=== PATIENT | female | born 1950 | race Caucasian/White ===

== ENCOUNTER 2025-03-22 14:01 | Observation (INO) | payer MEDICARE, SELFPAY ==
--- OUTSIDE RECORDS SUMMARY | 2023-12-14 04:00 | XMS_ITS ---
Author Organization [facility] Address [address] [place] [address] Care Team Providers Care Inspector Clip On Sunglasses Name Role Phone Todd Rothman Unavailable [phone] Migration, Provider Unavailable Unavailable REASON FOR VISIT [facility] [place] Social History Sex Assigned At : Social History Observation Description Sex Assigned At Female Encounters Encounter Location Date Provider Diagnosis [facility] [address] [place] [address] 12/14/2023 Provider Migration Plan Of Treatment Medication Medication Name Sig Start Date Stop Date Notes Meloxicam 7.5 MG take 1 tablet by ora l route 2 times every day Oral 10/14/2023 11/12/2023 Progress Notes * Ashok YUB: (75 yo F)Acc No.[id number]:12/14/2023 Patient: Gini KEATING :1950 A ge:73 Y S ex:Female Address[facility] [place], [address] * Refills Stop Meloxicam Tablet, 7.5 MG, Oral, 60, take 1 tablet by oral route 2 times every day Subjective: * Chief Complaints: * E MR-Ray * Medical History: * Surgical History: * Hospitalization/Major Diagno stic Procedure: * Medications: Objective: * Vitals: * Physical Examination: Assessment: Plan: * Treatment: * Procedure Codes: * * Date:
--- OUTSIDE RECORDS SUMMARY | 2023-12-15 04:00 | XMS_ITS ---
Author Organization [facility] Address [address] [place] [address] Care Team Providers Care Front Desk Lead Name Role Phone Todd Rothman Unavailable [phone] Migration, Provider Unavailable Unavailable Allergies No Known Allergies REASON FOR VISIT [facility] [place] Medications Medication SIG (Take, Route, Frequency, Duration) Notes Start Date End Date Status Estradiol 0.05 MG/24HR apply 1 patch by transdermal route every week cyclically, 3 weeks on and 1 week off Transdermal Active Atorvastatin Calcium 10 MG take 1 tablet by oral route every day Oral Active Donepezil HCl 10 MG take 1 tablet by ora l route every day in the evening Oral Active Escitalopram Oxalate 20 MG take 1 tablet by oral route every day Oral Active ALPRAZolam Intensol 1 MG/ML take 0.25 milliliter by oral route 3 times every day mixed with water, juice, soda, soda-like beverage, applesauce or pudding Oral Active Triamterene-HCTZ 37.5-25 MG take 1 capsule by oral route every day Oral Active Meloxicam 7.5 MG take 1 tablet by ora l route 2 times every day Oral 11/22/2023 12/21/2023 Active Social History Sex Assigned At : Social History Observation Description Sex Assigned At Female Encounters Encounter Location Date Provider Diagnosis [facility] [address] [place] [address] 12/15/2023 Provider Migration Plan Of Treatment No Information Progress Notes * Gini YUDOB: (75 yo F)Acc No.[id number]:12/15/2023 Patient: Gini KEATING :1950 A ge:73 Y S ex:Female Address:[address] [place] [address] [place], [address] Subjective: * Chief Complaints: * E MR-Ray * Medical History: * Surgical History: Sx_Procedure : historectomy 1983 Sx_Procedure : breast reduction 1989 * Hospitalization/Major Diagno stic Procedure: * Medications: T akingAtorvastatin Calcium 10 MG Tablet take 1 tablet by oral route every day Oral Meloxicam 7.5 MG Tablet take 1 tablet by oral route 2 times every day Oral , stop date 12/21/2023Escitalopram Oxalate 20 MG Tablet take 1 tablet by oral route every day Oral ALPRAZolam Intensol 1 MG/ML Concentrate take 0.25 milliliter by oral route 3 times every day mixed with water, juice, soda, soda-like beverage, applesauce or pudding Oral Triamterene-HCTZ 37.5-25 MG Capsule take 1 capsule by oral route every day Oral Estradiol 0.05 MG/24HR Patch Weekly apply 1 patch by transdermal route every week cyclically, 3 weeks on and 1 week off Transdermal Donepezil HCl 10 MG Tablet take 1 tablet by oral route every day in the evening Oral Taking Atorvastatin Calcium 10 MG Tablet take 1 tablet by oral route every day Oral Taking Meloxicam 7.5 MG Tablet take 1 tablet by oral route 2 times every day Oral , stop date 12/21/2023Taking Escitalopram Oxalate 20 MG Tablet take 1 tablet by oral route every day Oral Taking ALPRAZolam Intensol 1 MG/ML Concentrate take 0.25 milliliter by oral route 3 times every day mixed with water, juice, soda, soda-like beverage, applesauce or pudding Oral Taking Triamterene-HCTZ 37.5-25 MG Capsule take 1 capsule by oral route every day Oral Taking Estradiol 0.05 MG/24HR Patch Weekly apply 1 patch by transdermal route every week cyclically, 3 weeks on and 1 week off Transdermal Taking Donepezil HCl 10 MG Tablet take 1 tablet by oral route every day in the evening Oral * Allergies: N .K.D.A. Objective: * Vitals: * Physical Examination: Assessment: Plan: * Treatment: * Procedure Codes: * * Date:
--- OUTSIDE RECORDS SUMMARY | 2023-12-18 05:30 | XMS_ITS ---
Author Organization [facility] Address [address] [place] [address] Care Team Providers Care Motor Runner Name Role Phone Todd Rothman Unavailable [phone] REASON FOR VISIT FU/DANA Social History Sex Assigned At : Social History Observation Description Sex Assigned At Female Encounters Encounter Location Date Provider Diagnosis [facility] [address] [place] [address] 12/18/2023 Todd Rothman Plan Of Treatment No Information Progress Notes * Gini YUDOB: (75 yo F)Acc No.[id number]:12/18/2023 Progress Notes Patient: Gini KEATING Provider: Cory Rothman MD :1950 A ge:73 Y S ex:Female Date:12/18/2023 [facility] Subjective: * Chief Complaints: * 1 . FU/DANA. * Medical History: Objective: * Vitals: Assessment: Plan: * Treatment: * Billing Information: * Visit Code: * Procedure Codes: * Electronic signature of Todd Rothman MD on 2025 at 04:14 PM CDT Sign off status: Pending * Provider: Croy Rothman MD Date: 0 12/18/2023 Generated for Printi ng/Faxing/eTransmitting on: 1 04:14 PM CDT
--- OUTSIDE RECORDS SUMMARY | 2024-01-31 04:30 | XMS_ITS ---
Author Organization [facility] Address [address] [place] [address] Care Team Providers Care Elevator Pilot Name Role Phone Todd Rothman Unavailable [phone] REASON FOR VISIT FU/DANA Social History Sex Assigned At : Social History Observation Description Sex Assigned At Female Encounters Encounter Location Date Provider Diagnosis [facility] [address] [place] [address] 01/31/2024 Todd Rothman Plan Of Treatment No Information Progress Notes * Gini YUDOB: (75 yo F)Acc No.[id number]:01/31/2024 Progress Notes Patient: Gini KEATING Provider: Cory Rothman MD :1950 A ge:73 Y S ex:Female Date:01/31/2024 [facility] Subjective: * Chief Complaints: * 1 . FU/DANA. * Medical History: Objective: * Vitals: Assessment: Plan: * Treatment: * Billing Information: * Visit Code: * Procedure Codes: * Electronic signature of Todd Rothman MD on 2025 at 04:15 PM CDT Sign off status: Pending * Provider: Cory Rothman MD Date: 0 01/31/2024 Generated for Printi ng/Faxing/eTransmitting on: 1 04:15 PM CDT
--- OUTSIDE RECORDS SUMMARY | 2024-02-14 06:00 | XMS_ITS ---
Author Organization [facility] Address [address] [place] [address] Care Team Providers Care Slime Plant Operator Name Role Phone Stephan Todd Unavailable [phone] Jamia Santos Unavailable [phone] REASON FOR VISIT 2 month f/u Social History Sex Assigned At : Social History Observation Description Sex Assigned At Female Encounters Encounter Location Date Provider Diagnosis [facility] [place] [address] [place] [address] 02/14/2024 Jamia Santos Plan Of Treatment No Information Progress Notes * Gini YUDOB: (75 yo F)Acc No.[id number]:02/14/2024 Progress Notes Patient: Gini KEATING Provider: Anton Santos NP :1950 A ge:73 Y S ex:Female Date:02/14/2024 Address:[address] [place], [place] Subjective: * Chief Complaints: * 1 . 2 month f/u. * Medical History: Objective: * Vitals: Assessment: Plan: * Treatment: * Billing Information: * Visit Code: * Procedure Codes: * Electronic signature of Ana Lilia Santos NP on 2025 at 04:15 PM CDT Sign off status: Pending * Provider: Anton Santos NP Date: 0 02/14/2024 Generated for Printi ng/Faxing/eTransmitting on: 1 04:15 PM CDT
--- NOTE | ~2025-03-22 | CT_ITS ---
CT pelvis wo con INDICATION:Left pubic ramus fracture and sacral pain COMPARISON: None. TECHNIQUE: Noncontrast axial CT images of the pelvis were obtained followed by multiplanar reconstruction in the coronal and sagittal planes. FINDINGS: There is a acute nondisplaced fracture of the left superior pubic rami. Symphysis pubis and sacroiliac joints intact. Soft tissues are grossly unremarkable. IMPRESSION: Acute nondisplaced fracture of the left superior pubic rami.i All CT scans at this facility are performed using low dose modulation techniques as appropriate to perform exam including the following: automated exposure control; use of iterative reconstruction technique; adjustment of the mA and/or kV according to patient size (this includes techniques or standardized protocols for targeted exams where dose is matched to indication/reason for exam). Reviewed, dictated and finalized at location S. IMPRESSION: Acute nondisplaced fracture of the left superior pubic rami.i All CT scans at this facility are performed using low dose modulation techniqu es as appropriate to perform exam including the following: automated exposure c ontrol; use of iterative reconstruction technique; adjustment of the mA and/or kV according to patient size (this includes techniques or standardized protocol s for targeted exams where dose is matched to indication/reason for exam).
--- NOTE | ~2025-03-22 | CT_ITS ---
EXAMINATION: CT cervical spine wo con DATE: 03/22/2025 14:29 INDICATION: Head injury. TECHNIQUE: Computed tomography (CT) of the cervical spine was performed without intravenous contrast. Automated exposure control and iterative reconstruction technique were employed. The dose-length product was 143.99 mGy-cm. COMPARISON: None FINDINGS: There is 4 degrees levocurvature of cervical spine. Vertebral body heights are normal. There is mildly decreased disc height at C3-C4, C4-C5, C5- C6, and C6-C7. There is multilevel [id number] facet joint osteoarthritis. There is mild neural foraminal stenosis at multiple levels on either side. There is mild central canal stenosis at C4-C5, C5-C6, and C6-C7. IMPRESSION: 1. No fracture. 2. Mild cervical spondylosis. Reviewed, dictated and finalized at location E.
--- NOTE | ~2025-03-22 | CT_ITS ---
EXAMINATION: CT brain wo con DATE: 03/22/2025 14:28 INDICATION: Head injury. TECHNIQUE: Computed tomography (CT) of the head was performed without intravenous contrast. The mA was adjusted according to patient size. Iterative reconstruction technique was employed. The dose-length product was 605.33 mGy-cm. COMPARISON: None FINDINGS: There is no intracranial hemorrhage, acute infarction, or abnormal intracranial mass lesion. There are scattered areas of low attenuation in the cerebral white matter, which is within normal limits for the patient's age. The ventricles are normal in size. There is mild mucosal thickening in the ethmoid sinuses. The mastoid air cells are normal. The orbits are normal. IMPRESSION: 1. Normal aging brain. Reviewed, dictated and finalized at location E. IMPRESSION: 1. Normal aging brain.
--- NOTE | ~2025-03-22 | XR_ITS ---
EXAMINATION: XR hip LT 2V w AP pelvis DATE: 03/22/2025 14:41 INDICATION: Left hip pain post fall TECHNIQUE: Anteroposterior view of the pelvis and anteroposterior and cross- table lateral views of the left hip were obtained. COMPARISON: None. FINDINGS: Minimally displaced fracture at the left superior pubic ramus with mild buckling along the cephalad cortex. Fracture appears to extend into the left pubic body. No other fractures identified. Specifically the visualized proximal left femur in the left acetabulum including the anterior and posterior columns remain intact. Sacral arches are intact. Mild osteoarthritis at the bilateral hip and sacroiliac joints. Mild lumbar levocurvature with moderate to severe lower lumbar facet osteoarthritis with right-sided predominance. IMPRESSION: 1. Minimally displaced fracture of the left superior pubic ramus and body. Reviewed, dictated and finalized at location A.
--- NOTE | ~2025-03-22 | XR_ITS ---
XR lumbar spine 2-3V Indication: trauma, back pain Comparison: None Findings: Grade 1 retrolisthesis of L2 on L3, no fracture is identified. There is a mild levoconvex scoliosis. Moderate loss of disc height throughout. Soft tissues unremarkable Impression: No acute abnormality. Reviewed, dictated and finalized at location P. Impression: No acute abnormality.
[2025-03-22 14:14] VITALS: BP 140/77; PULSE 70; RESP 20; TEMP 36.4; O2SAT 100
[2025-03-22 14:59] VITALS: BP 121/71; PULSE 67; RESP 20; O2SAT 99
--- NOTE | 2025-03-22 15:54 | ED_ITS ---
HPI - Fall General Chief Complaint: Fall Stated Complaint: GLF-head injury Time Seen by Provider: 03/22/25 14:11 History of Present Illness HPI Narrative: Patient is a 75-year-old female who presents ER after having a fall at her memory care. Unwitnessed. They think her head may have struck a door handle. She has a small laceration to her head. She is not on blood thinners. She does have pain in the left hip/pelvic region with range of motion. No shortening or external rotation. Cannot provide any history. Related Data Allergies Allergy/AdvReac Type Severity Reaction Status Date / Time No Known Allergies Allergy Mild Verified 03/22/25 21:18 Review of Systems 2 Review of Systems: ROS unobtainable: Yes unobtainable due to mental status PMFSH Past Medical History Medical History Postmenopausal Age-related osteoporosis without current pathological fracture Anxiety Dementia, unspecified, without behavioral disturbance Mixed hyperlipidemia Family History Family History Mother Family history of Alzheimer's disease Father Family history of coronary artery disease Sibling Family history of coronary artery disease Social History Social History Smoking status: Never smoker Second hand tobacco smoke exposure: No Alcohol intake: never Exam 2 Narrative: GENERAL: Well-appearing, well-nourished, and in no acute distress. HEAD: Normocephalic, atraumatic. 1 cm laceration left temporal occipital area. ENT: Mucous membranes moist. CHEST: Clear to auscultation. No respiratory distress. HEART: Regular rate and rhythm. Normal peripheral pulses. ABDOMEN: Soft, nontender, nondistended. EXTREMITIES: Decreased range of motion due to pain in left hip. Normal right lower extremity and bilateral upper extremities. SKIN: Warm, dry, no rash. NEURO: Alert and oriented x3. PSYCH: Normal mood and affect. Course Course Emergency Course: Orthopedic surgery consulted. Admit to hospitalist service. Will require placement in a skilled facility. Vital Signs Vital signs: Vital Signs Temperature 97.6 F 03/22/25 14:14 Pulse Rate 70 03/22/25 14:14 Respiratory Rate 20 03/22/25 14:14 Blood Pressure 140/77 03/22/25 14:14 Pulse Oximetry 100 03/22/25 14:14 Oxygen Delivery Room Air 03/22/25 14:14 Temperature 97.6 F 03/22/25 21:21 Pulse Rate 59 L 03/22/25 21:21 Respiratory Rate 18 03/22/25 21:21 Blood Pressure 110/52 L 03/22/25 21:21 Pulse Oximetry 95 03/22/25 21:21 Oxygen Delivery Room Air 03/22/25 14:14 Procedures Laceration Laceration 1: Date: 03/22/25 Time: 18:00 Site: scalp Size (cm): 1 Description: linear Depth: simple, single layer Pre-repair: wound explored and irrigated ====== Skin Level ====== Skin layer closed with: leann Number of sutures: 1 ====== Subcutaneous Layer ====== ====== Muscle Layer ====== ====== Tendon Layer ====== MDM - Fall Lab Data 03/22/25 16:46 03/22/25 16:46 Labs: Lab Results 03/22/25 Range/Units 16:46 WBC 8.4 (4.5-10.0) K/mm3 RBC 3.96 L (4.2-5.4) M/mm3 Hgb 11.6 L (12.0-15.0) g/dL Hct 36.3 L (37.0-47.0) % MCV 91.7 (80-100) fl MCH 29.3 (26-34) pg MCHC 32.0 (32-36) g/dl RDW 14.1 (11.5-14.5) % Plt Count 267 (150-375) k/mm3 MPV 10.8 H (7.4-10.4) fl Immature Gran % (Auto) 0.4 (0-0.5) % Neut % (Auto) 73.6 H (45.5-73.1) % Lymph % (Auto) 14.1 L (18.3-44.2) % [place] % (Auto) 9.5 H (2.6-8.5) % Eos % (Auto) 1.7 (0-4.4) % Baso % (Auto) 0.7 (0.2-1.2) % Lymph # (Auto) 1.18 (0.9-3.2) K/mm3 [place] # (Auto) 0.8 H (0.1-0.6) K/mm3 Eos # (Auto) 0.1 (0-0.3) K/mm3 Baso # (Auto) 0.1 (0.0-0.1) K/mm3 Abs Immat Gran (auto) 0.03 (0.00-0.031) K/mm3 Absolute Neuts (auto) 6.2 (1.3-6.7) K/mm3 Absolute Nucleated RBC 0.000 (0.0-0.012) K/mm3 Nucleated RBC % 0.0 (0.0-0.2) % Sodium 138 (137-145) mmol/L Potassium 4.1 (3.4-5.0) mmol/L Chloride 99 (98-107) mmol/L Carbon Dioxide 33 H (22-30) mmol/L Anion Gap 6 (4-12) mmol/L BUN 29 H (7-17) mg/dL Creatinine 0.92 (0.7-1.0) mg/dL Estim Creat Clear Calc 39 ml/min Estimated GFR 60 (59 - ) Glucose 100 (65-110) mg/dL Calcium 9.1 (8.4-10.2) mg/dL Total Bilirubin 0.3 (0.2-1.3) mg/dL AST 31 (14-36) U/L ALT 22 (6-35) U/L Alkaline Phosphatase 80 (38-126) U/L Total Protein 6.7 (6.3-8.2) g/dL Albumin 3.8 (3.5-5.1) g/dL Imaging Data Radiologist's impression: ITS Impressions Head CT 03/22/25 14:29 IMPRESSION: 1. Normal aging brain. Cervical Spine CT 03/22/25 14:30 IMPRESSION: 1. No fracture. 2. Mild cervical spondylosis. Hip/Pelvis X-Ray 03/22/25 15:06 IMPRESSION: 1. Minimally displaced fracture of the left superior pubic ramus and body. Discharge Plan Discharge Clinical Impression: Pelvic fracture, Laceration of scalp Patient Disposition: Still a Patient Condition: Stable
--- OUTSIDE RECORDS SUMMARY | 2025-03-22 16:15 | XMS_ITS | Patient Health Record ---
Author Organization [facility] Address [address] [facility] [place] [address] Care Team Providers Care Food Service Sales Representatives Name Role Phone Todd Rothman Unavailable [phone] Allergies No Known Allergies Reason For Referral No Information Medications Medication SIG (Take, Route, Frequency, Duration) Notes Start Date End Date Status Estradiol 0.05 MG/24HR apply 1 patch by transdermal route every week cyclically, 3 weeks on and 1 week off Transdermal Active Atorvastatin Calcium 10 MG take 1 tablet by oral route every day Oral Active Triamterene-HCTZ 37.5-25 MG take 1 capsu le by oral route every day Oral Active Donepezil HCl 10 MG take 1 tablet by ora l route every day in the evening Oral Active Escitalopram Oxalate 20 MG take 1 tablet by oral route every day Oral Active ALPRAZolam Intensol 1 MG/ML take 0.25 mi lliliter by oral route 3 times every day mixed with water, juice, soda, soda-like beverage, applesauce or pudding Oral Active Social History Sex Assigned At : Social History Observation Description Sex Assigned At Female Plan Of Treatment No Information Insurance Providers Payer Name Payer Address Payer Phone Subscriber Number Group Number Insured Name Patient Relationship to Insured Coverage Start Date Coverage End Date [employer] Advantage Steven [address] [address] [place], [place] [id number] Gini Rodríguez Self - patient is the insured 4 Medical (General) History Surgical History Surgery Date(Month/Year) Sx_Procedure : historectomy 1983 Sx_Procedure : breast reduction 1989
--- OUTSIDE RECORDS SUMMARY | 2025-03-22 16:15 | XMS_ITS | Patient Health Record ---
Author Organization [facility] Address [address] [place] [id number] Care Team Providers Care Help Desk Support Specialist Name Role Phone JAMIE DICKINSON Primary Care Provider DR. SIMBA KAMINSKI Unavailable [phone] Xochitl Solo Unavailable [phone] [employer] Unavailable [phone] Cassandra Conley Unavailable [phone] Melyssa Canas Unavailable [phone] Allergies No Known Allergies Results Component Value Reference Range Notes Vitamin D, 25-Hydroxy Reviewed date:10/06/2024 11:01:58 AM Interpretation: Performing Lab: Notes/Report: Lipid Panel Reviewed date:10/06/2024 11:01:31 AM Interpretation: Performing Lab: Notes/Report: Basic Metabolic Panel (8) Reviewed date:10/06/2024 11:01:12 AM Interpretation: Performing Lab: Notes/Report: CBC Reviewed date:10/06/2024 11:00:45 AM Interpretation: Performing Lab: Notes/Report: X ray : Femur, right Reviewed date:11/11/2024 12:58:20 PM Interpretation: Performing Lab: Notes/Report: Urine Culture and Sensitivit y Reviewed date:11/16/2024 05:07:23 PM Interpretation: Performing Lab: Notes/Report: Reason For Referral No Information Medications Medication SIG (Take, Route, Frequency, Duration) Notes Start Date End Date Status ALPRAZolam 0.25 MG Tablet 1 tablet at be dtime Orally daily; Duration: 30 days 03/15/2025 Active Estradiol 0.5 MG Tablet 1 tablet Orally Once a day Active Escitalopram Oxalate 20 MG Tablet 1 tablet Orally Once a day Active Triamterene-HCTZ 37.5-25 MG Tablet 1 tablet in the morning Orally Once a day Active Memantine HCl 10 MG Tablet 1 tablet Oral ly Once a day Active Atorvastatin Calcium 10 MG Tablet 1 tablet Orally Once a day Active Pregabalin 75 MG Capsule 1 capsule Orall y twice a day 03/02/2025 Active Donepezil HCl 10 MG Tablet 1 tablet at b edtime Orally Once a day Active Rexulti 0.5 MG Tablet 1 tablet Orally On ce a day Active Social History Section Notes: former smoker former smoker former smoker former smoker former smoker former smoker Problems Problem Type SNOMED Code ICD Code Onset Dates Problem Status W/U Status Risk Notes Problem Moderate recurrent major depression (23315047) Major depressive disorder, recurrent, moderate (F33.1) Active confirmed Problem Essential hypertension (79405324) Essential (primary) hypertension (I10) Active confirmed Problem Hyperlipidemia (67024801) Hyperlipidemia (E78.5) Active confirmed Problem Dementia (54389313) Chronic dementia (F03.90) Active confirmed Vital Signs Heart Rate 64 /min 02/25/2025 Temperature 97.6 degrees Fahrenheit 02/25/2025 Respiratory Rate 18 /min 02/25/2025 Oximetry 95 % 02/25/2025 Blood pressure diastolic 64 mm Hg 02/25/2025 Blood pressure systolic 124 mm Hg 02/25/2025 Encounters Encounter Location Date Provider Diagnosis [address] [address] 08/12/2024 Xochitl Germania Chronic dementia F03.90 ; Essential (primary) hypertension I10 ; Major depressive disorder, recurrent, moderate F33.[address] [facility] [address] [place] [address] 12/04/2024 Melyssa Canas Chronic dementia F03.90 ; Essential (primary) hypertension I10 ; Major depressive disorder, recurrent, moderate F33.1 and Hyperlipidemia E78.[address] [address] 01/01/2025 Melyssa Canas Chronic dementia F03.90 ; Essential (primary) hypertension I10 ; Major depressive disorder, recurrent, moderate F33.1 ; Hyperlipidemia E78.5 and UTI (urinary tract infection), uncomplicated N39.0 [facility] [address] [place] [address], [place] [address] 02/25/2025 JAMIEMARGARET DICKINSON Chronic dementia F03.90 ; Essential (primary) hypertension I10 ; Major depressive disorder, recurrent, moderate F33.1 and Hyperlipidemia E78.5 [facility] [address] [place] [address], [place] [address] 08/11/2024 Xochitl Pendegraft [facility] [address] [place] [address], [place] [address] 08/11/2024 SIMBA KAMINSKI [facility] [address] [place] [address], [place] [address] 09/14/2024 Xochitl Pendegraft [facility] [address] [place] [address] 09/28/2024 Xochitl Pendegraft [facility] [address] [place] [address], [place] [address] 09/30/2024 Xochitl Pendegraft [facility] [address] [place] [address], [place] [address] 10/07/2024 Xochitl Pendegraft [facility] [address] [place] [address], [place] [address] 10/26/2024 JAMIE DICKINSON [facility] [address] [place] [address], [place] [address] 11/03/2024 Cassandra Conley [facility] [address] [place] [address] 11/05/2024 JAMIEMARGARET LAURENIA [facility] [address] [place] [address], [place] [address] 11/16/2024 JAMIE TEENA [facility] [address] [place] [address], [place] [address] 11/27/2024 JAMIE TEENA [facility] [address] [place] [address], [place] [address] 12/03/2024 Melyssa Canas [facility] [address] [place] [address], [place] [address] 12/03/2024 Melyssa Canas [facility] [address] [place] [address], [place] [address] 12/14/2024 [facility] [address] [id number] 12/28/2024 JAMIEMARGARET DICKINSON [facility] [address] [address] 01/05/2025 Cassandra Conley [facility] [address] [phone] 01/29/2025 Sri Holman [facility] [address] [phone] 02/09/2025 JAMIE TEENA [facility] [address] [address] 02/09/2025 JAMIE TEENA [facility] [address] [address] 02/24/2025 JAMIE [facility] [address] [phone] 03/02/2025 JAMIEMARGARET [place] [address] [address] 03/15/2025 JAMIE DICKINSON Assessments Encounter Date Diagnosis (ICD Code) Assessment Notes Treatment Notes Treatment Clinical Notes Section Notes 08/12/2024 Essential (primary) hypertension (ICD-10 - I10) chronic/stable continue triametrene/hctz 08/12/2024 Chronic dementia (ICD-10 - F03.90) chronic/progress scotty CPM nemanda aricept rexulti 12/04/2024 Chronic dementia (ICD-10 - F03.90) chronic/progress scotty CPM nemanda aricept rexulti 01/01/2025 Chronic dementia (ICD-10 - F03.90) chronic/progress scotty CPM nemanda aricept rexulti 02/25/2025 Essential (primary) hypertension (ICD-10 - I10) Blood pressure is stable and trending at goal. No complaints of adverse signs or symptoms. Stable on current medication regimen. Continue current treatment plan and monitoring. 02/25/2025 Chronic dementia (ICD-10 - F03.90) Alert and oriented x1, but able to make needs known. No behaviors or outburst per staff. Staff has been giving donepezil as an AM administration. Please change donepezil to QHS administration. 08/12/2024 Major depressive disorder, recurrent, moderate (ICD-10 - F33.1) chronic/stable Continue lexapro 02/25/2025 Major depressive disorder, recurrent, moderate (ICD-10 - F33.1) No complaints or concerns. Patient's stable on current medication regimen. Continue current treatment plan and monitoring. 12/04/2024 Essential (primary) hypertension (ICD-10 - I10) chronic/stable continue triametrene/hctz bp reviewed and stable 01/01/2025 Major depressive disorder, recurrent, moderate (ICD-10 - F33.1) chronic/stable Continue lexapro 01/01/2025 Essential (primary) hypertension (ICD-10 - I10) chronic/stable continue triametrene/hctz bp reviewed and stable 01/01/2025 Hyperlipidemia (ICD-10 - E78.5) chronic/stable Continue atorvastatin 12/04/2024 Major depressive disorder, recurrent, moderate (ICD-10 - F33.1) chronic/stable Continue lexapro 08/12/2024 Hyperlipidemia (ICD-10 - E78.5) chronic/stable Continue atorvastatin 02/25/2025 Hyperlipidemia (ICD-10 - E78.5) Last lipid panel 09/30/2024 - WNL. No complaints of adverse signs or symptoms. Well managed on current medication regimen. Continue current treatment plan and monitoring. 12/04/2024 Hyperlipidemia (ICD-10 - E78.5) chronic/stable Continue atorvastatin 01/01/2025 UTI (urinary tract infection), uncomplicated (ICD-10 - N39.0) ua was already ordered and collected results reviewed macrobid order written and given to Simba COVARRUBIAS 08/12/2024 Other f/u in 3 months or sooner if needed obtain BMP CBC FLP Vit D refer to facility EHR for most current medication list 12/04/2024 Other f/u in 3 months or sooner if needed refer to facility EHR for most current medication list 01/01/2025 Other f/u in 3 months or sooner if needed refer to facility EHR for most current medication list 02/25/2025 Other Continue isabell t treatment plan and monitoring. Staff to continue to monitor and report any changes. Patient education provided and questions/concer ns addressed. Follow-up in three months unless necessary sooner. Plan Of Treatment No Information Insurance Providers Payer Name Payer Address Payer Phone Subscriber Number Group Number Insured Name Patient Relationship to Insured Coverage Start Date Coverage End Date [place] [address] [address] [place] [address] [id number] Gini Rodríguez Self - patient is the insured Medical (General) History Medical History History ICD Code anxiety hypertension Surgical History Surgery Date(Month/Year) NO PREVIOUS SURGERIES
--- OUTSIDE RECORDS SUMMARY | 2025-03-22 16:15 | XMS_ITS | Patient Health Record ---
Author Organization RAMBO BASS MD PA1 Address [address] [place] [address] Care Team Providers Care Bus Driver Supervisor Name Role Phone RAMBO BASS Primary Care Provider [phone] Reason For Referral No Information Plan Of Treatment No Information Insurance Providers Payer Name Payer Address Payer Phone Subscriber Number Group Number Insured Name Patient Relationship to Insured Coverage Start Date Coverage End Date MEDICARE [address] [place] [phone] [id number] [id number] Self - patient is the insured [facility] [address] [place] [address] [id number] Self - patient is the insured
--- OUTSIDE RECORDS SUMMARY | 2025-03-22 16:15 | XMS_ITS | CCD ---
Author Name Interface, [id number] lity Address [place] [address] [facility] Address [place] [address] Reason for Visit SCRN Social History Date Name Value 09/06/2021 Sex Female
--- OUTSIDE RECORDS SUMMARY | 2025-03-22 16:15 | XMS_ITS | Clinical Summary ---
Author Organization [facility] Address [address] [place] [address] Phone Care Team Providers Care Cupola Charger Name Role Phone Iveth Michelle MD Primary Care Provider [phone] Social History Tobacco Use Types Packs/Day Years Used Date Smoking Tobacco: Never Assessed Comments Unknown Sex and Gender Information Value Date Recorded Sex Assigned at Not on file Legal Sex Female 8:56 AM CDT Gender Identity Not on file Sexual Orientation Not on file Plan of Treatment Health Maintenance Due Date Last Done Comments CT Colonography 1951 Cologuard 1950 Colonoscopy 1950 Colorectal Cancer Screening 1950 Mammogram 1950 Osteoporosis Screening 1951 MMR Vaccines (1 of 1 - Stand vivienne series) 1952 Varicella Vaccines (1 of 2 - 13+ 2-dose series) 1964 DTaP,Tdap,and Td Vaccines (1 - Tdap) 1970 FOBT/FIT 1996 Sigmoidoscopy 1996 Pneumococcal 50+ Yr (1 of 1 - PCV) 2001 Zoster Vaccines (1 of 2) 2001 Influenza Vaccine (#1) 2025 COVID-19 Vaccine ( - 2023-2 5 season) 2025 RSV Vaccine (1 - 1-dose 75+ series) 2026 HIB Vaccines Aged Out No longer eligi ble based on patient's age to complete this topic HPV Vaccines Aged Out No longer eligi ble based on patient's age to complete this topic Hepatitis A Vaccines Aged Out No long er eligible based on patient's age to complete this topic Hepatitis B Vaccines Aged Out No long er eligible based on patient's age to complete this topic IPV Vaccines Aged Out No longer eligi ble based on patient's age to complete this topic Meningococcal B Vaccine Aged Out No l onger eligible based on patient's age to complete this topic Meningococcal Vaccine Aged Out No bonnie jennifer eligible based on patient's age to complete this topic RSV Antibodies Aged Out No longer alan gible based on patient's age to complete this topic Insurance [employer]AGE Care Teams Cupola Charger Relationship Specialty Start Date End Date Iveth Michelle MD PCP - General Family Medicine 10/05/22
[2025-03-22 16:53] LABS: Hematocrit 36.3 % (37.0-47.0); Hemoglobin 11.6 g/dL (12.0-15.0); Immature Granulocyte Percent A 0.4 % (0-0.5); Lymphocytes Absolute Auto 1.18 K/mm3 (0.9-3.2); Mean Corpuscular HGB Conc 32.0 g/dl (32-36); Mean Corpuscular Hemoglobin 29.3 pg (26-34); Mean Corpuscular Volume 91.7 fl (80-100); Nucleated Red Blood Cells Absolute Auto 0.000 K/mm3 (0.0-0.012); Nucleated Red Blood Cells Perc 0.0 % (0.0-0.2); Platelet Count Result 267 k/mm3 (150-375); Red Blood Count 3.96 M/mm3 (4.2-5.4); White Blood Count 8.4 K/mm3 (4.5-10.0)
--- NOTE | 2025-03-22 17:03 | PM.IMHP ---
H&P: HPI History of Present Illness Date/Time: 03/22/25 17:03 Chief Complaint: Fall Narrative: 75 y/o F with PMH of anxiety, dementia, hyperlipidemia, and osteoporosis presents here with fall. The patient [place] [facility] [place] [place] after an unwitnessed fall that occurred today, 03/22. HPI obtained through chart review and the patient's son's report. Patient has a history of dementia and arrived A&O x2. A/Ox1 upon admission assessment and unable to contribute to history. He reports that the patient's sister stated that it appeared she got hung up on a doorknob causing a mechanical fall. Patient had a positive head strike as evidenced by a small less than 1 cm laceration to the left posterior region of her head. He patient unable to report if she lost consciousness. She denies pain to her neck, right side of her head, shins, knees or abdomen on evaluation. Did report some pain to her right thigh but there is no evidence of trauma on exam. Initial VS at presentation: 97.6? F, HR 70, RR 20, 140/77, and 100% on RA. ED workup showed: No leukocytosis, hemoglobin 11.6, no significant electrolyte abnormalities, creatinine 0.92 and GFR >60, glucose 100. Head CT showed normal aging brain. C-spine CT showed no fracture and mild cervical spondylosis. Hip/pelvic XR showed a minimally displaced fracture of the left superior pubic ramus and body. Review of Systems Review of Systems: All systems reviewed & are unremarkable except as noted in HPI and below (Limited, disoriented baseline) [facility]LY [facility], [facility] Past Medical History Medical History Postmenopausal Age-related osteoporosis without current pathological fracture Anxiety Dementia, unspecified, without behavioral disturbance Mixed hyperlipidemia Family History Family History Mother Family history of Alzheimer's disease Father Family history of coronary artery disease Sibling Family history of coronary artery disease Social History Social History Smoking status: Never smoker Second hand tobacco smoke exposure: No Alcohol intake: never Meds Home Medications and Allergies Home Medications ?Medication ?Instructions ?Recorded ?Confirmed ?Type pregabalin 50 mg capsule (Lyrica) 50 mg PO BID #180 caps 01/06/20 06/24/20 Rx estradiol 1 mg tablet 0.5 mg (1/2 x 1 mg) PO DAILY #30 04/11/20 06/24/20 Rx tabs donepezil 10 mg tablet (Aricept) 10 mg PO ONCE #90 tabs 05/10/20 06/24/20 Rx triamterene 37.5 1 cap PO DAILY #90 caps 05/25/20 06/24/20 Rx mg-hydrochlorothiazide 25 mg capsule (Dyazide) alendronate 70 mg tablet (Fosamax) 70 mg PO WEEKLY #4 tabs 06/18/20 06/24/20 Rx citalopram 20 mg tablet See Rx Instructions .Route 07/06/20 Rx .COMPLEX #90 tabs alprazolam 0.25 mg tablet 0.25 mg PO DAILY PRN anxiety #30 09/16/20 Rx tabs Allergies Allergy/AdvReac Type Severity Reaction Status Date / Time No Known Allergies Allergy Mild Verified 03/22/25 21:18 Vital Signs Vital Signs - 24 hr 03/22/25 14:14 03/22/25 14:59 Temperature 97.6 F Pulse Rate 70 67 Respiratory Rate 20 20 Blood Pressure 140/77 121/71 Pulse Oximetry 100 99 Oxygen Delivery Room Air Exam Const: General: comfortable and no acute distress Other: , female, elderly HENMT: Face/Nose/Sinus: Normal nares present Mouth: Yes moist mucous membranes Other: Small less than 1 cm laceration to left posterior temporal region, no active bleeding, rounded wound opening not suitable for stapling Eyes: General: appearance normal, both eyes and all related structures Sclera: sclerae normal Pupils: Equal, round and reactive pupils present EOM: EOMs intact bilaterally Resp: Effort & Inspection: normal respiratory effort Auscultation: clear to auscultation bilaterally Cardio: Rate: regular rate Rhythm: regular rhythm Other: S1-S2 present without murmur, rub, ectopy GI: Other: Abdomen soft, nondistended, nontender. Normoactive bowel sounds in all quadrants. Skin: General skin exam: normal color and no rashes or lesions noted Other: Small laceration to left posterior temporal region, no active bleeding. Small skin tear to right posterior hand, dressing CDI. Neuro: Speech: normal speech Motor exam (neuro): 5/5 motor strength present throughout Sensory Exam: normal sensation Other: A&O x1 Extrem: Other: 1+ trace pitting edema to bilateral ankles, symmetric. Minimal pain to right thigh with no overlying trauma noted. Psych: Mental Status: mental status grossly normal Affect: normal affect Other: No agitation or anxiety noted. Poor insight and judgment, pleasant. H&P: Results Labs Labs: Short CBC 03/22/25 Range/Units 16:46 WBC 8.4 (4.5-10.0) K/mm3 Hgb 11.6 L (12.0-15.0) g/dL Hct 36.3 L (37.0-47.0) % Plt Count 267 (150-375) k/mm3 Assessment and Plan Assessment and plan (1) Pubic ramus fracture: Qualifiers: Encounter type: initial encounter Fracture type: closed Laterality: left Qualified Code(s): S32.592A - Other specified fracture of left pubis, initial encounter for closed fracture Code(s): S32.599A - Other specified fracture of unspecified pubis, initial encounter for closed fracture Status: Acute Assessment and Plan: Patient had an unwitnessed fall at the memory care facility she resides at. She was noted to have a small laceration to the left posterior aspect of her head and skin tear to her right hand upon arrival. Hip/pelvic XR obtained on 03/22 showed a minimally displaced fracture of the left superior pubic ramus and body. She has been admitted for pain control, PT/OT evaluation, and placement for rehab services given recovery from fracture will be complicated by dementia. - analgesics p.r.n.: Tylenol, Elizabeth, Morphine p.r.n. - PT/OT evaluation treatment for rehab placement - care coordination consulted for rehab - fall precautions - orthopedics consulted - check UA (2) Dementia, unspecified, without behavioral disturbance: Code(s): F03.90 - Unspecified dementia, unspecified severity, without behavioral disturbance, psychotic disturbance, mood disturbance, and anxiety Status: Acute Assessment and Plan: History of dementia and resides at a memory care unit. Arrived A&O x2 and was A&O x1 upon admission assessment. - continue home medications once verified, unable to receive list from facility (3) Anxiety: Code(s): F41.9 - Anxiety disorder, unspecified Status: Acute Assessment and Plan: Stable, no outward signs of anxiety or agitation. - continue home medications once verified, unable to receive list from facility (4) Mixed hyperlipidemia: Code(s): E78.2 - Mixed hyperlipidemia Status: Acute Assessment and Plan: - continue home medications once verified, unable to receive list from facility Plan Diet: Heart healthy GI Prophylaxis: N/a DVT Prophylaxis: SCDs IV fluids: None Lines/Tubes: Peripheral IV Code Status: Full code Quality VTE Prophylaxis VTE prophylaxis: mechanical ordered Hospitalist MIPS Advance Care Plan I have confirmed that the patient's Advanced Care Plan is present, code status is documented, or surrogate decision maker is listed in patient medical record.: Yes Medication Reconciliation I have utilized all available resources to obtain, update and review the patients current medications (includes all prescriptions, OTC, herbals, cannabis, and nutritional supplements).: Yes
[2025-03-22 17:10] LABS: Alanine Aminotransferase 22 U/L (6-35); Albumin Level 3.8 g/dL (3.5-5.1); Alkaline Phosphatase 80 U/L (38-126); Anion Gap 6 mmol/L (4-12); Aspartate Amino Transferase 31 U/L (14-36); Bilirubin,Total 0.3 mg/dL (0.2-1.3); Blood Urea Nitrogen 29 mg/dL (7-17); Calcium 9.1 mg/dL (8.4-10.2); Carbon Dioxide 33 mmol/L (22-30); Chloride 99 mmol/L (98-107); Estimated CRCL calculation 39 ml/min; Estimated Glomerular Filt Rate 60; Glucose 100 mg/dL (65-110); Potassium 4.1 mmol/L (3.4-5.0); Sodium 138 mmol/L (137-145); Total Protein 6.7 g/dL (6.3-8.2)
[2025-03-22 17:20] VITALS: BP 132/68
[2025-03-22 18:28] VITALS: BP 114/66; PULSE 77; RESP 20; O2SAT 99
[2025-03-22] MEDS: HYDROcodone/acetaminophen (*CRX) 5-325 MG TABLET 1 TAB PO (19:28)
[2025-03-22 19:55] VITALS: BP 118/62; PULSE 61; RESP 18; O2SAT 95
[2025-03-22 21:15] VITALS: BMI 23.3
[2025-03-22 21:21] VITALS: BP 110/52; PULSE 59; RESP 18; TEMP 36.4; O2SAT 95
[2025-03-23] MEDS: HYDROcodone/acetaminophen (*CRX) 5-325 MG TABLET 1 TAB PO ×2 (01:00→21:11)
[2025-03-23 01:23] LABS: Add Urine Microscopic? NO; Appearance Urine Clear (Clear); Glucose Urine UA Negative (Negative); Leukocyte Esterase Ur Negative LEU/UL (Negative); Nitrate Urine Negative (Negative); Specific Grav Ur 1.018 (1.001-1.035)
--- NOTE | 2025-03-23 03:15 | PC.NURSE ---
Addendum entered by Mercedes Hopkins RN 03/23/25 05:04: 0500: called tel: and got the memory care number [phone]. The person who answered the phone stated that the nurse who knows the meds will be back after 7am and we should call back. Will relay this to the day shift RN Addendum entered by Mercedes Hopkins RN 03/23/25 03:55: 0354:tried the tel: no success. Original Note: 2100: Pt admitted from [facility] at 7.30pm. Pt with hx of dementia and baseline orientation only to person. Pt's daughter at bedside but states she does not know pt's med list and we should call the facility. The facility did not fax pt's med list. Charge nurse called the facility 4 times with no success. 0300: tried the number tel: with no success. Daughter was able to confirm that pt is not on any anticoagulant medication has no known allergy hx. Will relay to the day shift RN.
[2025-03-23 04:28] VITALS: BP 114/61; PULSE 70; RESP 14; TEMP 36.7; O2SAT 97
--- NOTE | 2025-03-23 09:57 | PCPTNOTE ---
Ortho consult pending prior to PT evaluation. Will follow.
[2025-03-23 13:26] VITALS: BMI 23.3
--- NOTE | 2025-03-23 13:37 | PC.NURSE ---
Spoke with Chelsea clinical administrative coordinator at [facility] this am- approx. 0830 am at [phone]. Requested patient medication list. Spoke with Clarice - testing director at [phone]. Requested patients home medication list. She advised she will send.
[2025-03-23 14:00] VITALS: BP 123/58; PULSE 80; RESP 16; TEMP 37.5; O2SAT 95
--- NOTE | 2025-03-23 14:41 | PM.IMPN ---
Progress Note: A&P Assessment and Plan (1) Pubic ramus fracture: Qualifiers: Encounter type: initial encounter Fracture type: closed Laterality: left Qualified Code(s): S32.592A - Other specified fracture of left pubis, initial encounter for closed fracture Code(s): S32.599A - Other specified fracture of unspecified pubis, initial encounter for closed fracture Status: Acute Assessment and Plan: Patient had an unwitnessed fall at the memory care facility she resides at. She was noted to have a small laceration to the left posterior aspect of her head and skin tear to her right hand upon arrival. Hip/pelvic XR obtained on 03/22 showed a minimally displaced fracture of the left superior pubic ramus and body. She has been admitted for pain control, PT/OT evaluation, and placement for rehab services given recovery from fracture will be complicated by dementia. - analgesics p.r.n.: Tylenol, Huguenot, Morphine p.r.n. - PT/OT evaluation treatment for rehab placement - care coordination consulted for rehab - fall precautions - orthopedics consulted - check [facility] ortho is following care coordination following for rehab placement (2) Dementia, unspecified, without behavioral disturbance: Code(s): F03.90 - Unspecified dementia, unspecified severity, without behavioral disturbance, psychotic disturbance, mood disturbance, and anxiety Status: Acute Assessment and Plan: History of dementia and resides at a memory care unit. Arrived A&O x2 and was A&O x1 upon admission assessment. - continue home medications once verified (3) Anxiety: Code(s): F41.9 - Anxiety disorder, unspecified Status: Acute Assessment and Plan: Stable, no outward signs of anxiety or agitation. - continue home medications once verified (4) Mixed hyperlipidemia: Code(s): E78.2 - Mixed hyperlipidemia Status: Acute Assessment and Plan: - continue home medications once verified Plan Diet: Heart healthy GI Prophylaxis: N/a DVT Prophylaxis: SCDs IV fluids: None Lines/Tubes: Peripheral IV Code Status: Full code Time Spent With Patient Time with patient: 25 - 35 minutes Subjective Date/time seen: 03/23/25 14:41 Interval history: 75 y/o F with PMH of anxiety, dementia, hyperlipidemia, and osteoporosis presents here with fall. The patient presents here from [facility] for further evaluation after an unwitnessed fall that occurred today, 03/22. HPI obtained through chart review and the patient's son's report. Patient has a history of dementia and arrived A&O x2. A/Ox1 upon admission assessment and unable to contribute to history. He reports that the patient's sister stated that it appeared she got hung up on a doorknob causing a mechanical fall. Patient had a positive head strike as evidenced by a small less than 1 cm laceration to the left posterior region of her head. He patient unable to report if she lost consciousness. She denies pain to her neck, right side of her head, shins, knees or abdomen on evaluation. Did report some pain to her right thigh but there is no evidence of trauma on exam. Initial VS at presentation: 97.6? F, HR 70, RR 20, 140/77, and 100% on RA. ED workup showed: No leukocytosis, hemoglobin 11.6, no significant electrolyte abnormalities, creatinine 0.92 and GFR >60, glucose 100. Head CT showed normal aging brain. C-spine CT showed no fracture and mild cervical spondylosis. Hip/pelvic XR showed a minimally displaced fracture of the left superior pubic ramus and body. 03/23 pt is seen and examined. Ortho is consulted. pain is controlled. Review of Systems Review of Systems: All systems reviewed & are unremarkable except as noted in HPI and below (Limited, disoriented baseline) Exam Const: General: comfortable and no acute distress Other: , female, elderly HENMT: Face/Nose/Sinus: Normal nares present Mouth: Yes moist mucous membranes Other: Small less than 1 cm laceration to left posterior temporal region, no active bleeding, rounded wound opening not suitable for stapling Eyes: General: appearance normal, both eyes and all related structures Sclera: sclerae normal Pupils: Equal, round and reactive pupils present EOM: EOMs intact bilaterally Resp: Effort & Inspection: normal respiratory effort Auscultation: clear to auscultation bilaterally Cardio: Rate: regular rate Rhythm: regular rhythm Other: S1-S2 present without murmur, rub, ectopy GI: Other: Abdomen soft, nondistended, nontender. Normoactive bowel sounds in all quadrants. Skin: General skin exam: normal color and no rashes or lesions noted Other: Small laceration to left posterior temporal region, no active bleeding. Small skin tear to right posterior hand, dressing CDI. Neuro: Cranial nerves: Yes Equal, round and reactive pupils present Speech: normal speech Motor exam (neuro): 5/5 motor strength present throughout Sensory Exam: normal sensation Other: A&O x1 Extrem: Other: 1+ trace pitting edema to bilateral ankles, symmetric. Minimal pain to right thigh with no overlying trauma noted. Psych: Mental Status: mental status grossly normal Affect: normal affect Other: No agitation or anxiety noted. Poor insight and judgment, pleasant. Objective Data Vital Signs Vital Signs: Vital Signs - 24 hr 03/22/25 14:59 03/22/25 17:20 03/22/25 18:28 Temperature Pulse Rate 67 77 Respiratory Rate 20 20 Blood Pressure 121/71 132/68 114/66 Pulse Oximetry 99 99 03/22/25 19:55 03/22/25 21:21 03/23/25 04:28 Temperature 97.6 F 98.0 F Pulse Rate 61 59 L 70 Respiratory Rate 18 18 14 Blood Pressure 118/62 110/52 L 114/61 Pulse Oximetry 95 95 97 03/23/25 14:00 Temperature 99.5 F Pulse Rate 80 Respiratory Rate 16 Blood Pressure 123/58 L Pulse Oximetry 95 Intake/Output Intake/Output: Intake & Output 03/20/25 03/21/25 03/22/25 03/23/25 23:59 23:59 23:59 23:59 Intake Total 400 Output Total 500 Balance -100 Meds/Results Medications: Active Medications Generic Name Dose Route Start Last Admin Trade Name Freq PRN Reason Stop Dose Admin Acetaminophen 650 mg 03/22/25 16:58 Acetaminophen 325 Mg Tablet PO Q4H PRN Mild Pain (1-3) or Fever Hydrocodone Bitart/Acetaminophen 1 tab 03/22/25 16:58 03/23/25 01:00 Hydrocodone/Acetaminophen (*Crx) 5-325 Mg Tablet PO 1 tab Q4H PRN Administration Pain Rated 4-6 Morphine Sulfate 2 mg 03/22/25 17:10 Morphine Sulfate (*Crx) 4 Mg/Ml Inj IV PUSH Q4H PRN Pain Rated 7-10 Naloxone HCl 0.1 mg 03/22/25 17:10 Naloxone Hcl 0.4 Mg/Ml Vial IV PUSH Q5MIN PRN Sedation Ondansetron HCl 4 mg 03/22/25 16:58 Ondansetron Inj 4 Mg/2 Ml Vial IV PUSH Q4H PRN Nausea Senna/Docusate Sodium 1 tab 03/22/25 17:14 Senna/Docusate Sodium Tablet PO HS PRN Constipation Radiology Results: ITS Impressions Head CT 03/22/25 14:29 IMPRESSION: 1. Normal aging brain. Cervical Spine CT 03/22/25 14:30 IMPRESSION: 1. No fracture. 2. Mild cervical spondylosis. Hip/Pelvis X-Ray 03/22/25 15:06 IMPRESSION: 1. Minimally displaced fracture of the left superior pubic ramus and body. Labs Labs: Laboratory Results - last 24 hr 03/22/25 03/22/25 03/23/25 16:46 21:31 00:56 WBC 8.4 RBC 3.96 L Hgb 11.6 L Hct 36.3 L MCV 91.7 MCH 29.3 MCHC 32.0 RDW 14.1 Plt Count 267 MPV 10.8 H Immature Gran % (Auto) 0.4 Neut % (Auto) 73.6 H Lymph % (Auto) 14.1 L Preston % (Auto) 9.5 H Eos % (Auto) 1.7 Baso % (Auto) 0.7 Lymph # (Auto) 1.18 Preston # (Auto) 0.8 H Eos # (Auto) 0.1 Baso # (Auto) 0.1 Abs Immat Gran (auto) 0.03 Absolute Neuts (auto) 6.2 Absolute Nucleated RBC 0.000 Nucleated RBC % 0.0 Sodium 138 Potassium 4.1 Chloride 99 Carbon Dioxide 33 H Anion Gap 6 BUN 29 H Creatinine 0.92 Estim Creat Clear Calc 39 Estimated GFR 60 Glucose 100 POC Capillary Glucose 103 Calcium 9.1 Total Bilirubin 0.3 AST 31 ALT 22 Alkaline Phosphatase 80 Total Protein 6.7 Albumin 3.8 Urine Color Yellow Urine Appearance Clear Urine pH 7.0 Ur Specific [place] 1.018 Urine Protein Negative Urine Glucose (UA) Negative Urine Ketones Negative Ur Blood (Man) Negative Urine Nitrate Negative Urine Bilirubin Negative Urine Urobilinogen 1.0 Leukocyte Esterase Rfl Negative Quality VTE Prophylaxis VTE prophylaxis: mechanical ordered
--- NOTE | 2025-03-23 16:54 | PM.CNOR ---
Assessment and Plan Assessment and plan (1) Pubic ramus fracture: Qualifiers: Encounter type: initial encounter Fracture type: closed Laterality: left Qualified Code(s): S32.592A - Other specified fracture of left pubis, initial encounter for closed fracture Code(s): S32.599A - Other specified fracture of unspecified pubis, initial encounter for closed fracture Status: Acute Assessment and Plan: Patient is a very pleasant 75-year-old female who was brought to the emergency room from [facility] yesterday after an unwitnessed fall and inability to bear weight. She had x-rays of the left hip which demonstrate a buckle type fracture of the superior pubic ramus at junction of body in superior pubic ramus there is also an irregularity of the pubic body on the left consistent with fracture. No other fracture noted. She also hit her head had a laceration over the left posterior aspect of her head. She had a CT scan brain which showed no acute abnormality. She also had cervical spine CT showing no fracture. She has a history of significant dementia. Physical examination On exam today she is very pleasant and communicates well but the things that she is saying and the answers to my questions no makes sense. She was unable to process my question of whether she was having pain in the left medial groin. With passive range of motion of her left hip though she did complain of pain at the left medial groin. I asked her if she had had any pain in her tailbone area and she responded that she had. Answers to further questioning about this however did not make sense. The as she may have a significant sacral fracture company pubic ramus fracture we will order a CT scan without contrast the pelvis for full evaluation as well as lumbar spine films. The patient has prior bone density test from June of 2020 showing lumbar spine T-score -2.5 both hips had T-score-0.9 so she did have osteoporosis in the lower back at that time. DVT prophylaxis is indicated. Since she has had recent head trauma I am a little bit worried about starting her on a stronger blood thinner such is Eliquis 2.5 mg twice daily for. I am going to instead use baby aspirin twice daily and we will use SCDs also. Patient can be mobilized partial weight-bearing on the left and when comfortable enough, weight-bearing as tolerated but it will be useful to know if she has evidence of compression fracture in her lower back or sacral fracture. 35 minutes were spent in total care this patient. History of Present Illness HPI Consult date: 03/23/25 Chief complaint: pelvic fracture PMFSH Past Medical History Medical History Postmenopausal Age-related osteoporosis without current pathological fracture Anxiety Dementia, unspecified, without behavioral disturbance Mixed hyperlipidemia Family History Family History Mother Family history of Alzheimer's disease Father Family history of coronary artery disease Sibling Family history of coronary artery disease Social History Social History Smoking status: Never smoker Second hand tobacco smoke exposure: No Alcohol intake: never Spiritual care concerns: No Meds Home Medications and Allergies Home Medications ?Medication ?Instructions ?Recorded ?Confirmed ?Type brexpiprazole 0.5 mg tablet 0.5 mg PO HS 03/23/25 03/23/25 History (Rexulti) memantine 10 mg tablet 10 mg PO DAILY 03/23/25 03/23/25 History pregabalin 50 mg capsule (Lyrica) 150 mg PO BID 03/23/25 03/23/25 History triamterene 37.5 1 cap PO DAILY 03/23/25 03/23/25 History mg-hydrochlorothiazide 25 mg capsule Allergies Allergy/AdvReac Type Severity Reaction Status Date / Time No Known Allergies Allergy Mild Verified 03/22/25 21:18 Vital Signs Vital Signs - 24 hr 03/22/25 17:20 03/22/25 18:28 03/22/25 19:55 Temperature Pulse Rate 77 61 Respiratory Rate 20 18 Blood Pressure 132/68 114/66 118/62 Pulse Oximetry 99 95 03/22/25 21:21 03/23/25 04:28 03/23/25 14:00 Temperature 36.4 C 36.7 C 37.5 C Pulse Rate 59 L 70 80 Respiratory Rate 18 14 16 Blood Pressure 110/52 L 114/61 123/58 L Pulse Oximetry 95 97 95 Results Labs 03/22/25 16:46 03/22/25 16:46 Labs: Abnormal lab results 03/22/25 Range/Units 16:46 RBC 3.96 L (4.2-5.4) M/mm3 Hgb 11.6 L (12.0-15.0) g/dL Hct 36.3 L (37.0-47.0) % MPV 10.8 H (7.4-10.4) fl Neut % (Auto) 73.6 H (45.5-73.1) % Lymph % (Auto) 14.1 L (18.3-44.2) % Sutter % (Auto) 9.5 H (2.6-8.5) % Sutter # (Auto) 0.8 H (0.1-0.6) K/mm3 Carbon Dioxide 33 H (22-30) mmol/L BUN 29 H (7-17) mg/dL H & H 03/22/25 Range/Units 16:46 Hgb 11.6 L (12.0-15.0) g/dL Hct 36.3 L (37.0-47.0) % All other labs normal.
[2025-03-23] MEDS: CALCIUM CITRATE 315 MG/VITAMIN D 6.25 MCG (250 UNITS) TAB 1 TABLET PO (18:06)
[2025-03-23 20:45] VITALS: BP 147/62; PULSE 73; RESP 14; TEMP 36.6; O2SAT 95
[2025-03-23] MEDS: ASPIRIN 81 MG ENTERIC TABLET PO (21:12)
[2025-03-24] MEDS: HYDROcodone/acetaminophen (*CRX) 5-325 MG TABLET 1 TAB PO ×4 (02:24→23:35)
[2025-03-24 04:44] VITALS: BP 119/49; PULSE 63; RESP 16; TEMP 37.1; O2SAT 98
[2025-03-24] MEDS: SODIUM CHLORIDE 0.9% IV 1,000 ML 75 ML IV CONT (06:25)
--- NOTE | 2025-03-24 08:03 | P.PNOP_ITS ---
Progress Note: A&P Assessment and Plan (1) Pubic ramus fracture: Qualifiers: Encounter type: initial encounter Fracture type: closed Laterality: left Qualified Code(s): S32.592A - Other specified fracture of left pubis, initial encounter for closed fracture Code(s): S32.599A - Other specified fracture of unspecified pubis, initial encounter for closed fracture Status: Acute Assessment and Plan: I reviewed the CT scan of the pelvis. It shows buckling of the superior pubic ramus in 2 locations. This is actually best seen on the machine whitener view. No inferior pubic ramus fracture and no fracture of the sacral ala or SI joint. Only the lower 2 lumbar vertebral bodies are seen therefore will order lumbar films today to rule out lumbar fractures since she indicated she did have back pain although her history is unreliable. X-rays of lumbar spine showed no evidence of fracture. Degenerative changes in the facet joints are noted. Patient did have a fair amount of pain transferring to the chair and required assistance of 2. For her to transferred back to see her stool, I am told that she will need to be able to transfer with assistance of only 1. Patient's brother and sister rimma were present and I discussed the diagnosis and treatment plan with them. Our plan is to use baby aspirin twice daily for 6 weeks for DVT prophylaxis. I would like to see her back in 6 weeks in the office for an x-ray. Subjective Subjective Date/Time Seen: 03/24/25 08:03 Objective Data Vital Signs Vital Signs: Vital Signs - 24 hr 03/23/25 14:00 03/23/25 20:45 03/24/25 04:44 Temperature 37.5 C 36.6 C 37.1 C Pulse Rate 80 73 63 Respiratory Rate 16 14 16 Blood Pressure 123/58 L 147/62 H 119/49 L Pulse Oximetry 95 95 98 Intake/Output Intake/Output: Intake & Output 03/21/25 03/22/25 03/23/25 03/24/25 23:59 23:59 23:59 23:59 Intake Total 660 440 Output Total 500 150 Balance 160 290 Meds/Results Medications: Active Medications Generic Name Dose Route Start Last Admin Trade Name Freq PRN Reason Stop Dose Admin Acetaminophen 650 mg 03/22/25 16:58 Acetaminophen 325 Mg Tablet PO Q4H PRN Mild Pain (1-3) or Fever Hydrocodone Bitart/Acetaminophen 1 tab 03/22/25 16:58 03/24/25 02:24 Hydrocodone/Acetaminophen (*Crx) 5-325 Mg Tablet PO 1 tab Q4H PRN Administration Pain Rated 4-6 Aspirin 81 mg 03/23/25 21:00 03/23/25 21:12 Aspirin 81 Mg Enteric Tablet PO 81 mg Q12HR JOSIE Administration Calcium Citrate 1 tablet 03/23/25 18:00 03/23/25 18:06 Calcium Citrate 315 Mg/Vitamin D 6.25 Mcg (250 Units) Tab PO 1 tablet BID JOSIE Administration Sodium Chloride 1,000 mls @ 75 mls/hr 03/24/25 05:50 03/24/25 06:25 Normal Saline Iv IV CONT 75 mls/hr .[id number] JOSIE Administration Memantine 10 mg 03/24/25 09:00 Memantine 10 Mg Tablet PO DAILY [facility] Miscellaneous Information 1 each 03/24/25 00:01 Rexulti Is Nonform; Can Pt Use From Home? XX 04/23/25 00:00 CLARIFY [facility] Miscellaneous Information 1 each 03/24/25 00:01 Clarify Lyrica Dose--Med Rec Dosing Unclear XX 04/23/25 00:00 CLARIFY [facility] Morphine Sulfate 2 mg 03/22/25 17:10 Morphine Sulfate (*Crx) 4 Mg/Ml Inj IV PUSH Q4H PRN Pain Rated 7-10 Naloxone HCl 0.1 mg 03/22/25 17:10 Naloxone Hcl 0.4 Mg/Ml Vial IV PUSH Q5MIN PRN Sedation Non-Formulary Medication 0.5 mg 03/23/25 21:00 Brexpiprazole [Rexulti] PO 04/22/25 20:59 HS [facility] Ondansetron HCl 4 mg 03/22/25 16:58 Ondansetron Inj 4 Mg/2 Ml Vial IV PUSH Q4H PRN Nausea Pregabalin 150 mg 03/23/25 17:00 Pregabalin (*Crx) 75 Mg Capsule PO BID [facility] Senna/Docusate Sodium 1 tab 03/22/25 17:14 Senna/Docusate Sodium Tablet PO HS PRN Constipation Triamterene/Hydrochlorothiazide 1 tab 03/24/25 09:00 Triamterene 37.5 Mg/Hctz 25 Mg (Maxzide) Tablet PO DAILY [facility] Radiology Results: ITS Impressions Head CT 03/22/25 14:29 IMPRESSION: 1. Normal aging brain. Cervical Spine CT 03/22/25 14:30 IMPRESSION: 1. No fracture. 2. Mild cervical spondylosis. Hip/Pelvis X-Ray 03/22/25 15:06 IMPRESSION: 1. Minimally displaced fracture of the left superior pubic ramus and body. Pelvis CT 03/23/25 21:42 IMPRESSION: Acute nondisplaced fracture of the left superior pubic rami.i All CT scans at this facility are performed using low dose modulation techniques as appropriate to perform exam including the following: automated exposure control; use of iterative reconstruction technique; adjustment of the mA and/or kV according to patient size (this includes techniques or standardized protocols for targeted exams where dose is matched to indication/reason for exam).
--- NOTE | 2025-03-24 08:21 | P.PNIM_ITS ---
Progress Note: A&P Assessment and Plan (1) Pubic ramus fracture: Qualifiers: Encounter type: initial encounter Fracture type: closed Laterality: left Qualified Code(s): S32.592A - Other specified fracture of left pubis, initial encounter for closed fracture Code(s): S32.599A - Other specified fracture of unspecified pubis, initial encounter for closed fracture Status: Acute Assessment and Plan: Patient had an unwitnessed fall at the [facility] care facility. She was noted to have a small laceration to the left posterior aspect of her head and a skin tear to her right hand upon arrival. - Head ct and c spine ct unremarkable - Hip/pelvic XR showed a minimally displaced fracture of the left superior pubic ramus and body. - Pelvis CT showed an acute nondisplaced fracture of the left superior pubic rami - analgesics p.r.n.: Tylenol, Leo, Morphine p.r.n. - PT/OT evaluation treatment for rehab placement - care coordination consulted for rehab - fall precautions - orthopedics consulted Started on asa 81 mg bid per ortho Only the lower 2 lumbar vertebral bodies are seen therefore will order lumbar films today to rule out lumbar fractures since she indicated she did have back pain although her history is unreliable. Lumbar XR unremarkable. (2) Dementia, unspecified, without behavioral disturbance: Code(s): F03.90 - Unspecified dementia, unspecified severity, without behavioral disturbance, psychotic disturbance, mood disturbance, and anxiety Status: Acute Assessment and Plan: History of dementia and resides at a memory care unit. Per son patient is AOx0-1 at baseline, he states she is currently at her baseline mental status - continue memantine (3) Mixed hyperlipidemia: Code(s): E78.2 - Mixed hyperlipidemia Status: Acute Assessment and Plan: Chronic, continue home medication Time Spent With Patient Time with patient: 25 - 35 minutes Subjective Date/time seen: 03/24/25 08:21 Interval history: 75 y/o F with PMH of anxiety, dementia, hyperlipidemia, and osteoporosis presents to the hospital with fall. Patient is pleasant lying comfortably in bed with family at bedside. Patient is currently alert and oriented times 0. Per patient's sonRian she appears at her baseline mental status. No acute events overnight. All questions were answered during assessment. Review of Systems Review of Systems: AOx0. Per son baseline is 0-1. ROS unobtainable: Yes unobtainable due to mental status Exam Narrative: AF HR 63 RR 16 SpO2 98 BP 119/49 General: frail female in no acute respiratory distress who is nontoxic appearing, lying semi recumbent in bed. HEENT: Normocephalic. Atraumatic. Extraocular movement intact. Sclera clear and anicteric. No facial asymmetry. Chest: Lungs are clear to auscultation bilaterally. CV: Heart was regular rate and rhythm. S1-S2. No murmurs, gallops, or rubs. Abd: Abdomen was soft. Nontender. Nondistended. Positive bowel sounds. Ext: No clubbing, cyanosis, or edema. DP pulses bilaterally. Neuro: Patient is alert and oriented x0 (baseline 0-1 per son). Objective Data Vital Signs Vital Signs: Vital Signs - 24 hr 03/23/25 14:00 03/23/25 20:45 03/24/25 04:44 Temperature 99.5 F 97.8 F 98.7 F Pulse Rate 80 73 63 Respiratory Rate 16 14 16 Blood Pressure 123/58 L 147/62 H 119/49 L Pulse Oximetry 95 95 98 Intake/Output Intake/Output: Intake & Output 03/21/25 03/22/25 03/23/25 03/24/25 23:59 23:59 23:59 23:59 Intake Total 660 440 Output Total 500 150 Balance 160 290 Meds/Results Medications: Active Medications Generic Name Dose Route Start Last Admin Trade Name Freq PRN Reason Stop Dose Admin Acetaminophen 650 mg 03/22/25 16:58 Acetaminophen 325 Mg Tablet PO Q4H PRN Mild Pain (1-3) or Fever Hydrocodone Bitart/Acetaminophen 1 tab 03/22/25 16:58 03/24/25 02:24 Hydrocodone/Acetaminophen (*Crx) 5-325 Mg Tablet PO 1 tab Q4H PRN Administration Pain Rated 4-6 Aspirin 81 mg 03/23/25 21:00 03/23/25 21:12 Aspirin 81 Mg Enteric Tablet PO 81 mg Q12HR JOSIE Administration Calcium Citrate 1 tablet 03/23/25 18:00 03/23/25 18:06 Calcium Citrate 315 Mg/Vitamin D 6.25 Mcg (250 Units) Tab PO 1 tablet BID JOSIE Administration Sodium Chloride 1,000 mls @ 75 mls/hr 03/24/25 05:50 03/24/25 06:25 Normal Saline Iv IV CONT 75 mls/hr .[id number] [facility] Administration Memantine 10 mg 03/24/25 09:00 Memantine 10 Mg Tablet PO DAILY [facility] Miscellaneous Information 1 each 03/24/25 00:01 Rexulti Is Nonform; Can Pt Use From Home? XX 04/23/25 00:00 CLARIFY [facility] Miscellaneous Information 1 each 03/24/25 00:01 Clarify Lyrica Dose--Med Rec Dosing Unclear XX 04/23/25 00:00 CLARIFY [facility] Morphine Sulfate 2 mg 03/22/25 17:10 Morphine Sulfate (*Crx) 4 Mg/Ml Inj IV PUSH Q4H PRN Pain Rated 7-10 Naloxone HCl 0.1 mg 03/22/25 17:10 Naloxone Hcl 0.4 Mg/Ml Vial IV PUSH Q5MIN PRN Sedation Non-Formulary Medication 0.5 mg 03/23/25 21:00 Brexpiprazole [Rexulti] PO 04/22/25 20:59 HS [facility] Ondansetron HCl 4 mg 03/22/25 16:58 Ondansetron Inj 4 Mg/2 Ml Vial IV PUSH Q4H PRN Nausea Pregabalin 150 mg 03/23/25 17:00 Pregabalin (*Crx) 75 Mg Capsule PO BID [facility] Senna/Docusate Sodium 1 tab 03/22/25 17:14 Senna/Docusate Sodium Tablet PO HS PRN Constipation Triamterene/Hydrochlorothiazide 1 tab 03/24/25 09:00 Triamterene 37.5 Mg/Hctz 25 Mg (Maxzide) Tablet PO DAILY [facility] Radiology Results: ITS Impressions Head CT 03/22/25 14:29 IMPRESSION: 1. Normal aging brain. Cervical Spine CT 03/22/25 14:30 IMPRESSION: 1. No fracture. 2. Mild cervical spondylosis. Hip/Pelvis X-Ray 03/22/25 15:06 IMPRESSION: 1. Minimally displaced fracture of the left superior pubic ramus and body. Pelvis CT 03/23/25 21:42 IMPRESSION: Acute nondisplaced fracture of the left superior pubic rami.i All CT scans at this facility are performed using low dose modulation techniques as appropriate to perform exam including the following: automated exposure control; use of iterative reconstruction technique; adjustment of the mA and/or kV according to patient size (this includes techniques or standardized protocols for targeted exams where dose is matched to indication/reason for exam). Quality VTE Prophylaxis VTE prophylaxis: mechanical ordered
[2025-03-24 08:50] LABS: Hematocrit 35.2 % (37.0-47.0); Hemoglobin 11.1 g/dL (12.0-15.0); Mean Corpuscular HGB Conc 31.5 g/dl (32-36); Mean Corpuscular Hemoglobin 29.1 pg (26-34); Mean Corpuscular Volume 92.1 fl (80-100); Platelet Count Result 247 k/mm3 (150-375); Red Blood Count 3.82 M/mm3 (4.2-5.4); White Blood Count 6.4 K/mm3 (4.5-10.0)
[2025-03-24 09:26] LABS: Alanine Aminotransferase 21 U/L (6-35); Albumin Level 3.5 g/dL (3.5-5.1); Alkaline Phosphatase 75 U/L (38-126); Anion Gap 4 mmol/L (4-12); Aspartate Amino Transferase 41 U/L (14-36); Bilirubin,Total 0.6 mg/dL (0.2-1.3); Blood Urea Nitrogen 19 mg/dL (7-17); Calcium 9.1 mg/dL (8.4-10.2); Carbon Dioxide 32 mmol/L (22-30); Chloride 101 mmol/L (98-107); Estimated CRCL calculation 43 ml/min; Estimated Glomerular Filt Rate > 60; Glucose 111 mg/dL (65-110); Potassium 3.7 mmol/L (3.4-5.0); Sodium 137 mmol/L (137-145); Total Protein 6.2 g/dL (6.3-8.2)
--- NOTE | 2025-03-24 09:39 | PCOTNOTE ---
Attempted to see pt. for occupational therapy evaluation. Pt. is away from room at this time for x-ray. Following
[2025-03-24] MEDS: CALCIUM CITRATE 315 MG/VITAMIN D 6.25 MCG (250 UNITS) TAB 1 TABLET PO ×2 (09:40→17:33)
[2025-03-24] MEDS: TRIAMTERENE 37.5 MG/HCTZ 25 MG (MAXZIDE) TABLET 1 TAB PO (09:41)
[2025-03-24] MEDS: ASPIRIN 81 MG ENTERIC TABLET PO ×2 (09:41→21:16)
[2025-03-24] MEDS: MEMANTINE 10 MG TABLET PO (09:41)
[2025-03-24 14:00] VITALS: BP 112/60; PULSE 62; RESP 16; TEMP 37.4; O2SAT 98
[2025-03-24] MEDS: PREGABALIN (*CRX) 75 MG CAPSULE PO (17:33)
[2025-03-24 21:02] VITALS: BP 114/45; PULSE 72; RESP 16; TEMP 37.2; O2SAT 97
[2025-03-25] MEDS: HYDROcodone/acetaminophen (*CRX) 5-325 MG TABLET 1 TAB PO ×2 (03:12→10:45)
[2025-03-25] MEDS: SENNA/DOCUSATE SODIUM TABLET 1 TAB PO (03:13)
[2025-03-25 05:49] LABS: Hematocrit 34.5 % (37.0-47.0); Hemoglobin 10.9 g/dL (12.0-15.0); Mean Corpuscular HGB Conc 31.6 g/dl (32-36); Mean Corpuscular Hemoglobin 29.1 pg (26-34); Mean Corpuscular Volume 92.0 fl (80-100); Platelet Count Result 244 k/mm3 (150-375); Red Blood Count 3.75 M/mm3 (4.2-5.4); White Blood Count 6.0 K/mm3 (4.5-10.0)
[2025-03-25 06:00] VITALS: BP 147/68; PULSE 84; RESP 16; TEMP 36.3; O2SAT 95
[2025-03-25 06:18] LABS: Alanine Aminotransferase 19 U/L (6-35); Albumin Level 3.3 g/dL (3.5-5.1); Alkaline Phosphatase 77 U/L (38-126); Anion Gap 2 mmol/L (4-12); Aspartate Amino Transferase 40 U/L (14-36); Bilirubin,Total 0.4 mg/dL (0.2-1.3); Blood Urea Nitrogen 16 mg/dL (7-17); Calcium 8.8 mg/dL (8.4-10.2); Carbon Dioxide 33 mmol/L (22-30); Chloride 100 mmol/L (98-107); Estimated CRCL calculation 42 ml/min; Estimated Glomerular Filt Rate > 60; Glucose 105 mg/dL (65-110); Potassium 4.0 mmol/L (3.4-5.0); Sodium 135 mmol/L (137-145); Total Protein 6.1 g/dL (6.3-8.2)
[2025-03-25] MEDS: ACETAMINOPHEN 325 MG TABLET 650 MG PO (06:24)
[2025-03-25] MEDS: MEMANTINE 10 MG TABLET PO (08:52)
[2025-03-25] MEDS: ASPIRIN 81 MG ENTERIC TABLET PO ×2 (08:52→22:04)
[2025-03-25] MEDS: CALCIUM CITRATE 315 MG/VITAMIN D 6.25 MCG (250 UNITS) TAB 1 TABLET PO ×2 (08:52→16:56)
[2025-03-25] MEDS: TRIAMTERENE 37.5 MG/HCTZ 25 MG (MAXZIDE) TABLET 1 TAB PO (08:52)
[2025-03-25] MEDS: PREGABALIN (*CRX) 75 MG CAPSULE PO ×2 (08:52→16:56)
--- NOTE | 2025-03-25 08:59 | P.PNIM_ITS ---
Progress Note: A&P Assessment and Plan (1) Pubic ramus fracture: Qualifiers: Encounter type: initial encounter Fracture type: closed Laterality: left Qualified Code(s): S32.592A - Other specified fracture of left pubis, initial encounter for closed fracture Code(s): S32.599A - Other specified fracture of unspecified pubis, initial encounter for closed fracture Status: Acute Assessment and Plan: Patient had an unwitnessed fall at the [facility] care facility. She was noted to have a small laceration to the left posterior aspect of her head and a skin tear to her right hand upon arrival. - Head ct and c spine ct unremarkable - Hip/pelvic XR showed a minimally displaced fracture of the left superior pubic ramus and body. - Pelvis CT showed an acute nondisplaced fracture of the left superior pubic rami - analgesics p.r.n.: Tylenol, [place], Morphine p.r.n. well controlled on the oral regimen - PT/OT evaluation, recommending placement. Care coordination following. - care coordination consulted for rehab - fall precautions - orthopedics consulted Started on asa 81 mg bid per ortho Only the lower 2 lumbar vertebral bodies are seen therefore will order lumbar films today to rule out lumbar fractures since she indicated she did have back pain although her history is unreliable. Lumbar XR unremarkable. (2) Dementia, unspecified, without behavioral disturbance: Code(s): F03.90 - Unspecified dementia, unspecified severity, without behavioral disturbance, psychotic disturbance, mood disturbance, and anxiety Status: Acute Assessment and Plan: History of dementia and resides at a memory care unit. Per son patient is AOx0-1 at baseline, he states she is currently at her baseline mental status - continue memantine (3) Mixed hyperlipidemia: Code(s): E78.2 - Mixed hyperlipidemia Status: Acute Assessment and Plan: Chronic, continue home medication Time Spent With Patient Time with patient: 25 - 35 minutes Subjective Date/time seen: 03/25/25 08:59 Interval history: 75 y/o F with PMH of anxiety, dementia, hyperlipidemia, and osteoporosis presents to the hospital with fall. Patient is pleasant sitting up comfortably in her chair. She is alert and oriented x1 at time of assessment. No acute events overnight. Care coordination continues to follow for placement. Review of Systems Review of Systems: AOx0. Per son baseline is 0-1. ROS unobtainable: Yes unobtainable due to mental status Exam Narrative: AF HR 84 RR 16 Spo2 95 BP 147/68 General: frail female in no acute respiratory distress who is nontoxic appeari ng, sitting up in chair HEENT: Normocephalic. Atraumatic. Extraocular movement intact. Sclera clear and anicteric. No facial asymmetry. Chest: Lungs are clear to auscultation bilaterally. CV: Heart was regular rate and rhythm. S1-S2. No murmurs, gallops, or rubs. Abd: Abdomen was soft. Nontender. Nondistended. Positive bowel sounds. Ext: No clubbing, cyanosis, or edema. DP pulses bilaterally. Neuro: Patient is pleasantly demented alert and oriented x1 (baseline 0-1 per son). Objective Data Vital Signs Vital Signs: Vital Signs - 24 hr 03/24/25 11:33 03/24/25 13:14 03/24/25 14:00 Temperature 99.3 F Pulse Rate 62 Respiratory Rate 16 Blood Pressure 112/60 Pulse Oximetry 98 Oxygen Delivery Room Air Room Air 03/24/25 21:02 03/25/25 06:00 03/25/25 07:59 Temperature 98.9 F 97.4 F L Pulse Rate 72 84 Respiratory Rate 16 16 Blood Pressure 114/45 L 147/68 H Pulse Oximetry 97 95 Oxygen Delivery Room Air Intake/Output Intake/Output: Intake & Output 03/22/25 03/23/25 03/24/25 03/25/25 23:59 23:59 23:59 23:59 Intake Total 660 1200 Output Total 500 150 Balance 160 1050 Meds/Results Medications: Active Medications Generic Name Dose Route Start Last Admin Trade Name Freq PRN Reason Stop Dose Admin Acetaminophen 650 mg 03/22/25 16:58 03/25/25 06:24 Acetaminophen 325 Mg Tablet PO 650 mg Q4H PRN Administration Mild Pain (1-3) or Fever Hydrocodone Bitart/Acetaminophen 1 tab 03/22/25 16:58 03/25/25 03:12 Hydrocodone/Acetaminophen (*Crx) 5-325 Mg Tablet PO 1 tab Q4H PRN Administration Pain Rated 4-6 Aspirin 81 mg 03/23/25 21:00 03/25/25 08:52 Aspirin 81 Mg Enteric Tablet PO 81 mg Q12HR JOSIE Administration Calcium Citrate 1 tablet 03/23/25 18:00 03/25/25 08:52 Calcium Citrate 315 Mg/Vitamin D 6.25 Mcg (250 Units) Tab PO 1 tablet BID [facility] Administration Memantine 10 mg 03/24/25 09:00 03/25/25 08:52 Memantine 10 Mg Tablet PO 10 mg DAILY [facility] Administration Miscellaneous Information 1 each 03/24/25 00:01 03/25/25 08:53 Rexulti Is Nonform; Can Pt Use From Home? XX 04/23/25 00:00 Not Given CLARIFY [facility] Morphine Sulfate 2 mg 03/22/25 17:10 Morphine Sulfate (*Crx) 4 Mg/Ml Inj IV PUSH Q4H PRN Pain Rated 7-10 Naloxone HCl 0.1 mg 03/22/25 17:10 Naloxone Hcl 0.4 Mg/Ml Vial IV PUSH Q5MIN PRN Sedation Non-Formulary Medication 0.5 mg 03/23/25 21:00 Brexpiprazole [Rexulti] PO 04/22/25 20:59 HS [facility] Ondansetron HCl 4 mg 03/22/25 16:58 Ondansetron Inj 4 Mg/2 Ml Vial IV PUSH Q4H PRN Nausea Pregabalin 75 mg 03/23/25 17:00 03/25/25 08:54 Pregabalin (*Crx) 75 Mg Capsule PO Not Given BID [facility] Senna/Docusate Sodium 1 tab 03/22/25 17:14 03/25/25 03:13 Senna/Docusate Sodium Tablet PO 1 tab HS PRN Administration Constipation Triamterene/Hydrochlorothiazide 1 tab 03/24/25 09:00 03/25/25 08:52 Triamterene 37.5 Mg/Hctz 25 Mg (Maxzide) Tablet PO 1 tab DAILY [facility] Administration Radiology Results: ITS Impressions Head CT 03/22/25 14:29 IMPRESSION: 1. Normal aging brain. Cervical Spine CT 03/22/25 14:30 IMPRESSION: 1. No fracture. 2. Mild cervical spondylosis. Hip/Pelvis X-Ray 03/22/25 15:06 IMPRESSION: 1. Minimally displaced fracture of the left superior pubic ramus and body. Pelvis CT 03/23/25 21:42 IMPRESSION: Acute nondisplaced fracture of the left superior pubic rami.i All CT scans at this facility are performed using low dose modulation techniques as appropriate to perform exam including the following: automated exposure control; use of iterative reconstruction technique; adjustment of the mA and/or kV according to patient size (this includes techniques or standardized protocols for targeted exams where dose is matched to indication/reason for exam). Lumbar Spine X-Ray 03/24/25 09:33 Impression: No acute abnormality. Labs Labs: Laboratory Results - last 24 hr 03/24/25 03/25/25 08:31 05:06 WBC 6.0 RBC 3.75 L Hgb 10.9 L Hct 34.5 L MCV 92.0 MCH 29.1 MCHC 31.6 L RDW 14.1 Plt Count 244 MPV 11.0 H Sodium 137 135 L Potassium 3.7 4.0 Chloride 101 100 Carbon Dioxide 32 H 33 H Anion Gap 4 2 L BUN 19 H D 16 Creatinine 0.87 0.88 Estim Creat Clear Calc 43 42 Estimated GFR > 60 > 60 Glucose 111 H 105 Calcium 9.1 8.8 Total Bilirubin 0.6 0.4 AST 41 H 40 H ALT 21 19 Alkaline Phosphatase 75 77 Total Protein 6.2 L 6.1 L Albumin 3.5 3.3 L Quality VTE Prophylaxis VTE prophylaxis: mechanical ordered
[2025-03-25 14:00] VITALS: BP 120/61; PULSE 76; RESP 15; TEMP 36.2; O2SAT 96
[2025-03-25 21:58] VITALS: BP 122/56; PULSE 82; RESP 14; TEMP 36.4; O2SAT 98
[2025-03-26 05:54] VITALS: BP 113/55; PULSE 65; RESP 16; TEMP 36.9; O2SAT 95
[2025-03-26 06:20] LABS: Hematocrit 35.6 % (37.0-47.0); Hemoglobin 11.5 g/dL (12.0-15.0); Mean Corpuscular HGB Conc 32.3 g/dl (32-36); Mean Corpuscular Hemoglobin 29.3 pg (26-34); Mean Corpuscular Volume 90.6 fl (80-100); Platelet Count Result 272 k/mm3 (150-375); Red Blood Count 3.93 M/mm3 (4.2-5.4); White Blood Count 6.5 K/mm3 (4.5-10.0)
[2025-03-26 06:41] LABS: Alanine Aminotransferase 23 U/L (6-35); Albumin Level 3.7 g/dL (3.5-5.1); Alkaline Phosphatase 75 U/L (38-126); Anion Gap 3 mmol/L (4-12); Aspartate Amino Transferase 45 U/L (14-36); Bilirubin,Total 0.4 mg/dL (0.2-1.3); Blood Urea Nitrogen 25 mg/dL (7-17); Calcium 9.5 mg/dL (8.4-10.2); Carbon Dioxide 34 mmol/L (22-30); Chloride 97 mmol/L (98-107); Estimated CRCL calculation 36 ml/min; Estimated Glomerular Filt Rate 52; Glucose 106 mg/dL (65-110); Potassium 4.0 mmol/L (3.4-5.0); Sodium 134 mmol/L (137-145); Total Protein 6.6 g/dL (6.3-8.2)
--- NOTE | 2025-03-26 07:05 | PM.IMPN ---
Progress Note: A&P Assessment and Plan (1) Pubic ramus fracture: Qualifiers: Encounter type: initial encounter Fracture type: closed Laterality: left Qualified Code(s): S32.592A - Other specified fracture of left pubis, initial encounter for closed fracture Code(s): S32.599A - Other specified fracture of unspecified pubis, initial encounter for closed fracture Status: Acute Assessment and Plan: Patient had an unwitnessed fall at the [facility] care facility. She was noted to have a small laceration to the left posterior aspect of her head and a skin tear to her right hand upon arrival. - Head ct and c spine ct unremarkable - Hip/pelvic XR showed a minimally displaced fracture of the left superior pubic ramus and body. - Pelvis CT showed an acute nondisplaced fracture of the left superior pubic rami - analgesics p.r.n.: Tylenol, [place], Morphine p.r.n. well controlled on the oral regimen - PT/OT evaluation, recommending placement. Care coordination following. - care coordination consulted for rehab - fall precautions - orthopedics consulted Started on asa 81 mg bid per ortho Only the lower 2 lumbar vertebral bodies are seen therefore will order lumbar films today to rule out lumbar fractures since she indicated she did have back pain although her history is unreliable. Lumbar XR unremarkable. (2) Dementia, unspecified, without behavioral disturbance: Code(s): F03.90 - Unspecified dementia, unspecified severity, without behavioral disturbance, psychotic disturbance, mood disturbance, and anxiety Status: Acute Assessment and Plan: History of dementia and resides at a memory care unit. Per son patient is AOx0-1 at baseline, he states she is currently at her baseline mental status - continue memantine (3) Mixed hyperlipidemia: Code(s): E78.2 - Mixed hyperlipidemia Status: Acute Assessment and Plan: Chronic, continue home medication Time Spent With Patient Time with patient: 25 - 35 minutes Subjective Date/time seen: 03/26/25 07:05 Interval history: 75 y/o F with PMH of anxiety, dementia, hyperlipidemia, and osteoporosis presents to the hospital with fall. Review of Systems Review of Systems: AOx0. Per son baseline is 0-1. ROS unobtainable: Yes unobtainable due to mental status Exam Narrative: AF HR General: frail female in no acute respiratory distress who is nontoxic appearing, sitting up in chair HEENT: Normocephalic. Atraumatic. Extraocular movement intact. Sclera clear and anicteric. No facial asymmetry. Chest: Lungs are clear to auscultation bilaterally. CV: Heart was regular rate and rhythm. S1-S2. No murmurs, gallops, or rubs. Abd: Abdomen was soft. Nontender. Nondistended. Positive bowel sounds. Ext: No clubbing, cyanosis, or edema. DP pulses bilaterally. Neuro: Patient is pleasantly demented alert and oriented x1 (baseline 0-1 per son). Objective Data Vital Signs Vital Signs: Vital Signs - 24 hr 03/25/25 07:59 03/25/25 14:00 03/25/25 21:58 Temperature 97.1 F L 97.6 F Pulse Rate 76 82 Respiratory Rate 15 14 Blood Pressure 120/61 122/56 L Pulse Oximetry 96 98 Oxygen Delivery Room Air 03/26/25 05:54 Temperature 98.5 F Pulse Rate 65 Respiratory Rate 16 Blood Pressure 113/55 L Pulse Oximetry 95 Oxygen Delivery Intake/Output Intake/Output: Intake & Output 03/23/25 03/24/25 03/25/25 03/26/25 23:59 23:59 23:59 23:59 Intake Total 660 1200 1037 150 Output Total 500 150 Balance 160 1050 1037 150 Meds/Results Medications: Active Medications Generic Name Dose Route Start Last Admin Trade Name Freq PRN Reason Stop Dose Admin Acetaminophen 650 mg 03/22/25 16:58 03/25/25 06:24 Acetaminophen 325 Mg Tablet PO 650 mg Q4H PRN Administration Mild Pain (1-3) or Fever Hydrocodone Bitart/Acetaminophen 1 tab 03/22/25 16:58 03/25/25 10:45 Hydrocodone/Acetaminophen (*Crx) 5-325 Mg Tablet PO 1 tab Q4H PRN Administration Pain Rated 4-6 Aspirin 81 mg 03/23/25 21:00 03/25/25 22:04 Aspirin 81 Mg Enteric Tablet PO 81 mg Q12HR JOSIE Administration Calcium Citrate 1 tablet 03/23/25 18:00 03/25/25 16:56 Calcium Citrate 315 Mg/Vitamin D 6.25 Mcg (250 Units) Tab PO 1 tablet BID JOSIE Administration Memantine 10 mg 03/24/25 09:00 03/25/25 08:52 Memantine 10 Mg Tablet PO 10 mg DAILY JOSIE Administration Miscellaneous Information 1 each 03/24/25 00:01 03/25/25 08:53 Rexulti Is Nonform; Can Pt Use From Home? XX 04/23/25 00:00 Not Given CLARIFY [facility]OS[facility] Morphine Sulfate 2 mg 03/22/25 17:10 Morphine Sulfate (*Crx) 4 Mg/Ml Inj IV PUSH Q4H PRN Pain Rated 7-10 Naloxone HCl 0.1 mg 03/22/25 17:10 Naloxone Hcl 0.4 Mg/Ml Vial IV PUSH Q5MIN PRN Sedation Non-Formulary Medication 0.5 mg 03/23/25 21:00 Brexpiprazole [Rexulti] PO 04/22/25 20:59 HS JOSIE Ondansetron HCl 4 mg 03/22/25 16:58 Ondansetron Inj 4 Mg/2 Ml Vial IV PUSH Q4H PRN Nausea Pregabalin 75 mg 03/23/25 17:00 03/25/25 16:56 Pregabalin (*Crx) 75 Mg Capsule PO 75 mg BID JOSIE Administration Senna/Docusate Sodium 1 tab 03/22/25 17:14 03/25/25 03:13 Senna/Docusate Sodium Tablet PO 1 tab HS PRN Administration Constipation Triamterene/Hydrochlorothiazide 1 tab 03/24/25 09:00 03/25/25 08:52 Triamterene 37.5 Mg/Hctz 25 Mg (Maxzide) Tablet PO 1 tab DAILY [facility]OSIE Administration Radiology Results: ITS Impressions Head CT 03/22/25 14:29 IMPRESSION: 1. Normal aging brain. Cervical Spine CT 03/22/25 14:30 IMPRESSION: 1. No fracture. 2. Mild cervical spondylosis. Hip/Pelvis X-Ray 03/22/25 15:06 IMPRESSION: 1. Minimally displaced fracture of the left superior pubic ramus and body. Pelvis CT 03/23/25 21:42 IMPRESSION: Acute nondisplaced fracture of the left superior pubic rami.i All CT scans at this facility are performed using low dose modulation techniques as appropriate to perform exam including the following: automated exposure control; use of iterative reconstruction technique; adjustment of the mA and/or kV according to patient size (this includes techniques or standardized protocols for targeted exams where dose is matched to indication/reason for exam). Lumbar Spine X-Ray 03/24/25 09:33 Impression: No acute abnormality. Labs Labs: Laboratory Results - last 24 hr 03/26/25 05:40 WBC 6.5 RBC 3.93 L Hgb 11.5 L Hct 35.6 L MCV 90.6 MCH 29.3 MCHC 32.3 RDW 14.4 Plt Count 272 MPV 10.8 H Sodium 134 L Potassium 4.0 Chloride 97 L Carbon Dioxide 34 H Anion Gap 3 L BUN 25 H Creatinine 1.04 H Estim Creat Clear Calc 36 Estimated GFR 52 L Glucose 106 Calcium 9.5 Total Bilirubin 0.4 AST 45 H ALT 23 Alkaline Phosphatase 75 Total Protein 6.6 Albumin 3.7 Quality VTE Prophylaxis VTE prophylaxis: mechanical ordered
[2025-03-26] MEDS: TRIAMTERENE 37.5 MG/HCTZ 25 MG (MAXZIDE) TABLET 1 TAB PO (08:16)
[2025-03-26] MEDS: HYDROcodone/acetaminophen (*CRX) 5-325 MG TABLET 1 TAB PO ×2 (08:16→14:57)
[2025-03-26] MEDS: ASPIRIN 81 MG ENTERIC TABLET PO (08:16)
[2025-03-26] MEDS: MEMANTINE 10 MG TABLET PO (08:17)
[2025-03-26] MEDS: PREGABALIN (*CRX) 75 MG CAPSULE PO ×2 (08:17→14:57)
[2025-03-26] MEDS: CALCIUM CITRATE 315 MG/VITAMIN D 6.25 MCG (250 UNITS) TAB 1 TABLET PO ×2 (08:17→14:58)
[2025-03-26 11:40] VITALS: BMI 10.0
--- NOTE | 2025-03-26 13:15 | P.DS_ITS ---
DS: Admitting Diagnosis Discharge Date 03/26/2025 Admitting Diagnosis pubic ramus dementia mixed hld DS: Discharge Diagnosis Discharge Diagnosis (1) Pubic ramus fracture: Qualifiers: Encounter type: initial encounter Fracture type: closed Laterality: left Qualified Code(s): S32.592A - Other specified fracture of left pubis, initial encounter for closed fracture Code(s): S32.599A - Other specified fracture of unspecified pubis, initial encounter for closed fracture Status: Acute (2) Dementia, unspecified, without behavioral disturbance: Code(s): F03.90 - Unspecified dementia, unspecified severity, without behavioral disturbance, psychotic disturbance, mood disturbance, and anxiety Status: Acute (3) Mixed hyperlipidemia: Code(s): E78.2 - Mixed hyperlipidemia Status: Acute DS: Summary Hospital Course Reason for hospitalization: pubic ramus dementia mixed hld Hospital Course: 75 y/o F with PMH of anxiety, dementia, hyperlipidemia, and osteoporosis presents to the hospital with an unwitnessed fall at the [facility] care facility. She was noted to have a small laceration to the left posterior aspect of her head and a skin tear to her right hand upon arrival. No signs of acute infection on admission. Head ct and c spine ct unremarkable. Hip/pelvic XR showed a minimally displaced fracture of the left superior pubic ramus and body. Pelvis CT showed an acute nondisplaced fracture of the left superior pubic rami. Evaluated by ortho and no acute surgical intervention required. Patient started on asa 81 mg bid per ortho. She was complaining of lower back, lumbar XR unremarkable. Patient continued to work with PT/OT who recommended placement. Patient discharged to SNF in a stable condition. She is to follow up with ortho as scheduled and her PCP in 1 week. Status at Discharge Functional status at discharge: uses cane/walker Time Spent with Patient Time attestation: Total time spent providing and/or coordinating discharge services: Time spent: Greater than 30 minutes Exam Narrative: AF HR 65 RR 16 Spo2 95 BP 113/55 General: frail female in no acute respiratory distress who is nontoxic appearing, lying in bed. HEENT: Normocephalic. Atraumatic. Extraocular movement intact. Sclera clear and anicteric. No facial asymmetry. Chest: Lungs are clear to auscultation bilaterally. CV: Heart was regular rate and rhythm. Abd: Abdomen was soft. Nontender. Nondistended. Positive bowel sounds. Ext: No clubbing, cyanosis, or edema. DP pulses bilaterally. Neuro: Patient is pleasantly demented alert and oriented x1 DS: Data Data Completed and Pending Completed studies during hospitalization: lumbar xr pelvis ct hip/pelvis ct c spine ct head ct Labs on day of discharge: Labs from last 24 hours 03/26/25 03/26/25 11:45 05:40 WBC 6.5 RBC 3.93 L Hgb 11.5 L Hct 35.6 L MCV 90.6 MCH 29.3 MCHC 32.3 RDW 14.4 Plt Count 272 MPV 10.8 H Sodium 134 L Potassium 4.0 Chloride 97 L Carbon Dioxide 34 H Anion Gap 3 L BUN 25 H Creatinine 1.04 H Estim Creat Clear Calc 36 Estimated GFR 52 L Glucose 106 POC Capillary Glucose 110 H Calcium 9.5 Total Bilirubin 0.4 AST 45 H ALT 23 Alkaline Phosphatase 75 Total Protein 6.6 Albumin 3.7 Discharge Plan Discharge Attending physician on discharge: Dante Steven Consulting providers: Zee Trotter; Karel Ponce Discharging Clinician: Zee Trotter Anticipated Discharge Date/Time: 03/26/25 12:51 Patient Disposition: SNF Activity: follow weight bearing status Diet: as tolerated Discharge Instructions: Discharge disposition: Patient admitted to the hospital for a fall that resulted in a pubic rami fracture Evaluated by Orthopedics and no acute surgical intervention required Started on aspirin 81 mg 2 twice a day per Ortho, attached is information on this medication Continue Tylenol for pain Prescribed [place] for breakthrough pain, attached is information on this medication Physical therapy to work with patient on transferring bed to chair and when comfortable enough patient could do a little bit of ambulation with goal of being partial weight-bearing on the left leg but with the understanding that she may not be able to follow instructions due to her dementia and if she does put too much weight on the left leg she may feel pain in the groin but it should not prevent healing of her pubic ramus fracture on the left. Follow-up with ortho as scheduled Monitor blood pressures Take caution while standing, rising, or moving Change positions slowly taking a break between each position change If you standing feel dizzy sit back down and take a break Encouraged to continue with yearly vaccinations Return to the emergency department if he developed sudden shortness of breath, chest pain, nausea, vomiting, upset stomach or intractable diarrhea Return to the emergency department if you develop fever greater than 100.5 Follow-up with the primary care physician within 1-2 weeks Thank you for [facility] for your healthcare needs Patient Instructions: Hydrocodone/Acetaminophen (By mouth), Aspirin (By mouth) Patient Language: Cameroonian Stand Alone Forms: General Discharge Information Follow-up/Referrals: Jessica,Cesario Muñoz, [Primary Care Provider, Unknown] - 1 Week Karel Ponce MD [Physician, Orthopedics] - 6 Weeks Problems: Pubic ramus fracture Discharge Medications: New aspirin 81 mg Tablet,Delayed Release (Dr/Ec) 81 mg PO Q12HR Qty: 90 0RF calcium carbonate-vitamin D3 [Calcium 500 + D] 500 mg-10 mcg (400 unit) tablet 1 tablet PO BID Qty: 100 0RF hydrocodone-acetaminophen 5-325 mg Tablet 1 tablet PO Q4H PRN (Reason: Pain Rated 4-6) Qty: 7 0RF Continued memantine 10 mg tablet 10 mg PO DAILY Rexulti 0.5 mg tablet 0.5 mg PO HS triamterene-hydrochlorothiazid 37.5-25 mg capsule 1 cap PO DAILY pregabalin [Lyrica] 50 mg capsule 150 mg PO BID Rx Instructions: 75 mg orally twice a day; Date of admission: 03/22/25 16:58 Primary Care Provider: JessicaCesario Admitting Provider: Luis Alberto Sandoval Attending physician on admission: Luis Alberto Sandoval Condition: Stable Hospitalist MIPS Heart Failure (Exclusion) Patient has history of Heart Transplant or Left Ventricular Assistive Device?: No IF YES, STOP HERE Heart Failure (Qualifier) Patient has current or prior documentation of LVEF less than or equal to 40%, or mod/servere depressed LVSF?: No IF NO, STOP HERE
[2025-03-26 14:00] VITALS: BP 119/59; PULSE 69; RESP 14; TEMP 36.6; O2SAT 95
--- NOTE | 2025-03-26 14:15 | PC.NURSE ---
Telephone report called to Rex Liu RN.
--- NOTE | 2025-03-26 17:35 | PC.NURSE ---
Beatriz Woodward, sister, notified per telephone of patients discharge to [facility].'
== END 2025-03-26 17:35 ==
LOC: ANHED 15:58 → ANH3MEDSUR 22:13
PROVIDERS: Student in an Organized Health Care Education/Training Program; Admitting Provider General Practice; Emergency Provider Emergency Medicine; PCP Internal Medicine; Visit Provider Internal Medicine
DX: S01.91XA Laceration without foreign body of unspecified part of head, initial encounter (principal); S32.512A Fracture of superior rim of left pubis, initial encounter for closed fracture; W19.XXXA Unspecified fall, initial encounter; F03.90 Unspecified dementia, unspecified severity, without behavioral disturbance, psychotic disturbance, mood disturbance, and anxiety; M81.0 Age-related osteoporosis without current pathological fracture; E78.2 Mixed hyperlipidemia; F41.9 Anxiety disorder, unspecified
CPT/HCPCS: 12001; 36415; 70450; 72100; 72125; 72192; 73502; 80053; 81003; 82948; 85025; 85027; 97110; 97116; 97161; 97166; 97530; 97535; 99285; A9270; G0378; J7030